=== PATIENT | male | born 1950 | race Caucasian/White ===

== ENCOUNTER → 2017-10-20 12:48 | Outpatient (CLI) | payer MEDICARE, MEDICAID, SELFPAY | PROVIDERS: Visit Provider Family Medicine | DX: D50.0 Iron deficiency anemia secondary to blood loss (chronic) (principal) ==

== ENCOUNTER 2018-01-05 13:49 | Inpatient (IN) ==
--- NOTE | 2018-01-05 15:15 | Emergency Department Note ---
ED Disposition Clinical Impression: Renal insufficiency Abscess of skin or subcutaneous tissue Qualifiers: Site of cutaneous abscess: extremity Site of cutaneous abscess of extremity: lower extremity Laterality: right Qualified Code(s): L02.415 - Cutaneous abscess of right lower limb Anemia Qualifiers: Anemia type: unspecified type Qualified Code(s): D64.9 - Anemia, unspecified Diabetes mellitus Qualifiers: Diabetes mellitus type: type 2 Diabetes mellitus half-way insulin use: with half-way use Diabetes mellitus complication detail: with chronic kidney disease Chronic kidney disease stage: unspecified stage Disposition: Admitted As Inpatient Condition on Discharge: Serious - Critical Care Critical Care Time: No Attestation: On 01/05/18, the high probability of a clinically significant, sudden or life threatening deterioration of the following system(s) required my full and direct attention, intervention and personal management. The time I documented below is in addition to time spent performing reported procedures but includes the following listed in this critical care notation. Medical Decision Making - Medical Records Medical records reviewed: Yes: I reviewed the patient's medical records. - Antonio Inquiry Pt receiving controlled substance: No Vital Signs: 01/05/18 14:19 01/05/18 14:37 01/05/18 15:25 Temperature 97.8 F Temperature Source Temporal Artery Scan Temporal Artery Scan Pulse Rate [Right Brachial] 70 74 78 Respiratory Rate 18 Blood Pressure [Right Arm] 122/47 119/38 120/44 Blood Pressure Mean [Right Arm] 72 65 69 Blood Pressure Source [Right Arm] Automatic Cuff Automatic Cuff Automatic Cuff Blood Pressure Position [Right Arm] Sitting Sitting Sitting 02 Sat by Pulse Oximetry 96 97 97 Oxygen Delivery Method Room Air Room Air 01/05/18 15:56 01/05/18 16:38 Temperature Temperature Source Temporal Artery Scan Pulse Rate [Right Brachial] 69 68 Respiratory Rate Blood Pressure [Right Arm] 121/60 119/68 Blood Pressure Mean [Right Arm] 80 85 Blood Pressure Source [Right Arm] Automatic Cuff Automatic Cuff Blood Pressure Position [Right Arm] Sitting Sitting 02 Sat by Pulse Oximetry 96 97 Oxygen Delivery Method Room Air Room Air - Lab Data Lab results reviewed: Yes: I reviewed the patient's lab results. Lab Results 01/05/18 14:49: WBC 6.3, RBC 2.92 L, Hgb 7.6 L*, Hct 26.4 L, MCV 90.4, MCH 26.1 L, MCHC 28.9 L, RDW 16.1, Plt Count 263, MPV 7.0 L, Neut % (Auto) 68.3, Lymph % (Auto) 11.9, [place] % (Auto) 4.9, Eos % (Auto) 14.6 H, Baso % (Auto) 0.4, Neut # (Auto) 4.3, Lymph # (Auto) 0.7, [place] # (Auto) 0.3, Eos # (Auto) 0.9 H, Baso # (Auto) 0.0, ESR 97 H 01/05/18 14:49: Sodium 140, Potassium 5.4 H, Chloride 104, Carbon Dioxide 26, Anion Gap 15.4 H, BUN 59 H, Creatinine 4.57 H, Estimated Creat Clear 26, Estimated GFR 13 L*, Est GFR ( Amer) 16 L*, Glucose 197 H, Calcium 7.6 L, Total Bilirubin 0.2, AST 17, ALT 15, Alkaline Phosphatase 47, Total Protein 6.8, Albumin 2.6 L, Globulin 4.2 H, Albumin/Globulin Ratio 0.6 L 01/05/18 14:49: Hemoglobin A1c 7.4 H 01/05/18 14:49: Lactate 1.8 Result diagrams: 01/05/18 14:49 01/05/18 14:49 Orders (Tests/Meds): ORDERS Category Date Time Status Fibula/tibia XR right 2 views [XR tibia fibula RT 2V] Exams 01/05/18 15:19 Taken Stat Foot XR left 2 views [XR foot LT 2V] Stat Exams 01/05/18 15:18 Taken Blood Culture Stat Micro 01/05/18 14:49 Received - Radiology Data #1 Image(s): Tib/Fib, Foot/Toes Image Reviewed: Yes I reviewed the patient's radiology image Preliminary Findings: Abnormal - Physician Consults Physician Consulted: sound Reason -: Admission Wound/Laceration HPI - General Chief Complaint: Skin/Abscess/Foreign Body Stated Complaint: Toes busting open Time Seen by Provider: 01/05/18 14:20 Mode of Arrival: Wheelchair Source of Information: Patient, Medical Record Limitations: No Limitations Description of Symptoms (Recalled from ER Triage Doc. by RN): BLE UNABOOTS PRESENT; PT STATES WAS PLACED ON AN ATB A WEEK AGO AND JUST FINISHED THEM FOR A BIG TOE INFECTION AND NOW HIS FEET ARE COMPLETELY RED AND SWOLLEN. STATES HE FEELS LIKE INFECTION HAS SPREAD. NOTE THAT HE SEEMS COMPLETELY OBLIVIOUS TO THE HUNDREDS OF MAGGOTS THAT ARE CRAWLING AROUND ON HIS RIGHT FOOT. - History of Present Illness HPI narrative: pt with swelling and reddness rt foot with hx of diabetes mellitus and has seen podiatry and wearing lower ext wraps - he reports this over the last few days Onset (ago): day(s) Extremity Location: Right: foot Place: home Associated symptoms: loss of feeling/numbness - Related Data Home Medications Medication Instructions Recorded Confirmed carvedilol 6.25 mg tablet 1 tab PO BID 90 Days #180 11/25/17 01/05/18 clopidogrel 75 mg tablet 1 tab PO DAILY 90 Days #90 11/25/17 01/05/18 fenofibrate nanocrystallized 145 1 tab PO DAILY 90 Days #90 11/25/17 01/05/18 mg tablet furosemide 80 mg tablet 1 tab PO DAILY 90 Days #90 11/25/17 01/05/18 glimepiride 4 mg tablet 1 tab PO DAILY 90 Days #90 11/25/17 01/05/18 hydralazine 10 mg tablet 1 % PO DAILY 90 Days #360 11/25/17 01/05/18 isosorbide mononitrate ER 30 mg 1 tab PO DAILY 90 Days #90 11/25/17 01/05/18 tablet,extended release 24 hr linagliptin 5 mg tablet 1 % PO DAILY 90 Days #90 11/25/17 01/05/18 lisinopril 10 mg tablet 1 tab PO DAILY 90 Days #180 11/25/17 01/05/18 metformin 1,000 mg tablet 1 tab PO BID 90 Days #90 11/25/17 01/05/18 mupirocin 2 % topical ointment 1 applicatio TOPICAL DAILY 15 Days 11/25/17 01/05/18 #66 omeprazole 20 mg capsule,delayed 1 tab PO DAILY 30 Days #60 11/25/17 01/05/18 release rosuvastatin 5 mg tablet 1 tab PO DAILY 90 Days #90 11/25/17 01/05/18 spironolactone 25 mg tablet 1 tab PO DAILY 87 Days #174 11/25/17 01/05/18 tramadol 50 mg tablet 1 tab PO DAILYP PRN 30 Days #30 11/25/17 01/05/18 Sulfamethoxazole/Trimethoprim 1 each PO BID 01/05/18 01/05/18 [Bactrim DS tablet] Allergies Allergy/AdvReac Type Severity Reaction Status Date / Time erythromycin base Allergy Intermediate Verified 01/05/18 15:59 [ERYTHROMYCIN BASE] Penicillins [PENICILLINS] Allergy Intermediate Verified 01/05/18 15:59 [facility] History I have reviewed the patient's past medical history: Yes Medical History: Reports:: Diabetes Mellitus Type 1, Hyperlipidemia, Hypertension Other Surgeries: Yes: Other Comment: oral surgery - Social History Smoking Status: Former smoker #Yrs smoked (if former smoker): 58 Alcohol Intake: never Alcohol Intake Frequency:: other - Psychiatric History Expresses thoughts of harming self/others: None Suicide Plan Description: No Plan ROS Obtained: Yes All systems reviewed & no additional complaints - Constitutional Constitutional: Denies fever(s) - Eyes Eyes: Denies change in vision - ENT Ears, Nose, Mouth, and Throat: Denies sore throat - Cardiovascular Cardiovascular: Denies chest pain - Respiratory Respiratory: No cough - Gastrointestinal Gastrointestingal: Denies: abdominal pain - Genitourinary Male Genitourinary: Denies hematuria - Musculoskeletal Musculoskeletal: Denies joint pain, Denies joint swelling - Integumentary/Breasts Skin/Breast: Reports as per HPI, Reports other (swollen legs with ulceration and maggots rt foot ) - Neurologic Neurologic: Denies seizure-like activity Physical Exam - General General appearance: alert - Head Head exam: normocephalic - Eye Eye exam: Present: PERRL, EOMI - ENT ENT exam: Present: mucous membranes dry - Neck Neck exam: Present: trachea midline - Respiratory Respiratory exam: Absent: respiratory distress - Cardiovascular Cardiovascular exam: Present: regular rate, systolic murmur - Abdominal Exam Abdominal exam: Present: soft - Extremities Exam Extremities exam: Present: other (reddness /tenderness rt lower ext with neuro dec and has tissue breakdown and maggots noted ) - Neurological Exam Neurological exam: Present: alert, oriented X3, other (dec sensation lower ext and has reddness and changes lt lower ext also ) - Psychiatric Psychiatric exam: Present: normal affect - Skin Skin exam: Present: other (cellulitis and changes lower ext )
[2018-01-05 15:25] LABS: Basophils % 0.4 % (0.1-2.0); Eosinophils # 0.9 K/mm3 (0.0-0.4); Eosinophils % 14.6 % (0.1-12.0); Hematocrit 26.4 % (42.0-52.0); Lymphocytes # 0.7 K/mm3 (0.7-4.5); Lymphocytes % 11.9 K/mm3 (10-50); Mean Corpuscular HGB Conc 28.9 g/dL (31.8-35.4); Mean Corpuscular Hemoglobin 26.1 pg (27.0-31.2); Mean Corpuscular Volume 90.4 fl (80-94); Monocytes # 0.3 K/mm3 (0.1-1.0); Monocytes % 4.9 % (1.7-9.3); Neutrophils # 4.3 K/mm3 (1.8-7.8); Neutrophils % 68.3 % (37.0-80.0); Platelet Count 263 K/mm3 (142-424); Red Blood Count 2.92 M/mm3 (4.60-6.20); Red Cell Distribution Width 16.1 % (11.5-17.5); White Blood Count 6.3 K/mm3 (4.8-10.8)
[2018-01-05 15:28] LABS: Albumin Level 2.6 gm/dL (3.4-5.0); Albumin/Globulin Ratio 0.6 (1.1-1.8); Anion Gap 15.4 mEq/L (5-15); Bilirubin,Total 0.2 mg/dL (0.2-1.0); Calcium 7.6 mg/dL (8.5-10.1); Globulin 4.2 gm/dl (1.3-3.2); Potassium 5.4 mmoL/L (3.5-5.1); Total Protein,Serum 6.8 gm/dL (6.4-8.2)
[2018-01-05 15:30] LABS: Hemoglobin 7.6 g/dL (14.1-18.0)
[2018-01-05 16:08] LABS: Erythrocyte Sedimentation Rate 97 mm/hr (0-20)
[2018-01-06 06:39] LABS: Basophils % 0.6 % (0.1-2.0); Eosinophils # 0.9 K/mm3 (0.0-0.4); Eosinophils % 15.4 % (0.1-12.0); Hematocrit 28.2 % (42.0-52.0); Lymphocytes # 0.9 K/mm3 (0.7-4.5); Lymphocytes % 15.4 K/mm3 (10-50); Mean Corpuscular HGB Conc 27.9 g/dL (31.8-35.4); Mean Corpuscular Hemoglobin 25.3 pg (27.0-31.2); Mean Corpuscular Volume 90.8 fl (80-94); Mean Platelet Volume 7.1 fl (7.4-10.4); Monocytes # 0.3 K/mm3 (0.1-1.0); Monocytes % 5.2 % (1.7-9.3); Neutrophils # 3.6 K/mm3 (1.8-7.8); Neutrophils % 63.5 % (37.0-80.0); Platelet Count 272 K/mm3 (142-424); Red Blood Count 3.11 M/mm3 (4.60-6.20); White Blood Count 5.6 K/mm3 (4.8-10.8)
[2018-01-06 06:47] LABS: Hemoglobin 7.9 g/dL (14.1-18.0)
[2018-01-06 06:52] LABS: Anion Gap 12.2 mEq/L (5-15); Calcium 7.7 mg/dL (8.5-10.1); Potassium 5.2 mmoL/L (3.5-5.1)
--- NOTE | 2018-01-06 07:27 | Pharmacy Consult Notes ---
[facility] Pharmacy VTE Monitoring - Patient Demographics Admission date: 01/05/18 Report Date: 01/06/18 Time: 07:27 Allergies/Adverse Reactions: Patient Allergies erythromycin base [ERYTHROMYCIN BASE] Allergy (Intermediate, Verified 01/05/18 15:59) Penicillins [PENICILLINS] Allergy (Intermediate, Verified 01/05/18 15:59) Height: 1.7 m Weight: 138.516 kg Patient Problems: Current Active Problems Abscess of skin or subcutaneous tissue (Acute) Renal insufficiency (Acute) Anemia (Acute) Diabetes mellitus (Acute) - VTE Risk Labs: VTE Related Lab Results Hgb 7.9 g/dL (14.1-18.0) L* 01/06/18 05:36 Hct 28.2 % (42.0-52.0) L 01/06/18 05:36 Plt Count 272 K/mm3 (142-424) 01/06/18 05:36 BUN 52 mg/dL (7-18) H 01/06/18 05:36 Creatinine 3.86 mg/dL (0.70-1.30) H 01/06/18 05:36 Estimated Creat Clear 17 mL/min (0-300) 01/06/18 05:36 Was VTE Risk Assessment Performed: Yes VTE Risk Level: Moderate Risk - Prophylaxis VTE Prophylaxis Ordered?: Yes Types of VTE Prophylaxis: TEDS Knee High Location of Applied Device: Bilateral Lower Extremeties - VTE Diagnosis Confirmed Treatment or plan recommended: Continue Current Treatment
--- NOTE | 2018-01-06 09:11 | Pharmacy Consult Notes ---
- Pharmacy Consult Date: 01/06/18 Time: 09:09 Referring provider: DR. DOZIER Reason for Consult:: VANCOMYCIN DOSING Allergies and ADEs:: Allergies Allergy/AdvReac Type Severity Reaction Status Date / Time erythromycin base Allergy Intermediate Verified 01/05/18 15:59 [ERYTHROMYCIN BASE] Penicillins [PENICILLINS] Allergy Intermediate Verified 01/05/18 15:59 Home Medications:: Home Medications Medication Instructions Recorded Confirmed Type carvedilol 6.25 mg tablet 6.25 mg PO BID 90 Days #180 11/25/17 01/06/18 History clopidogrel 75 mg tablet 75 mg PO DAILY 90 Days #90 11/25/17 01/06/18 History fenofibrate nanocrystallized 145 145 mg PO DAILY 90 Days #90 11/25/17 01/06/18 History mg tablet furosemide 80 mg tablet 80 mg PO DAILY 90 Days #90 11/25/17 01/06/18 History glimepiride 4 mg tablet 4 mg PO DAILY 90 Days #90 11/25/17 01/06/18 History hydralazine 10 mg tablet 20 mg PO BID 90 Days #360 11/25/17 01/06/18 History isosorbide mononitrate ER 30 mg 30 mg PO DAILY 90 Days #90 11/25/17 01/06/18 History tablet,extended release 24 hr linagliptin 5 mg tablet 5 mg PO DAILY 90 Days #90 11/25/17 01/06/18 History lisinopril 10 mg tablet 20 mg PO DAILY 90 Days #180 11/25/17 01/06/18 History metformin 1,000 mg tablet 1,000 mg PO DAILY 90 Days #90 11/25/17 01/06/18 History mupirocin 2 % topical ointment 1 applicatio TOPICAL DAILY 15 Days 11/25/17 01/05/18 History #66 omeprazole 20 mg capsule,delayed 20 mg PO DAILY 30 Days #60 11/25/17 01/06/18 History release rosuvastatin 5 mg tablet 5 mg PO DAILY 90 Days #90 11/25/17 01/06/18 History spironolactone 25 mg tablet 25 mg PO DAILY 87 Days #174 11/25/17 01/06/18 History tramadol 50 mg tablet 1 tab PO DAILY 30 Days #30 11/25/17 01/06/18 History Sulfamethoxazole/Trimethoprim 1 tab PO BID 01/05/18 01/06/18 History [Bactrim DS tablet] Ferrous Sulfate 325 mg PO DAILY 01/06/18 01/06/18 History Levocetirizine Dihydrochloride 5 mg PO HS 01/06/18 01/06/18 History [Xyzal] [place]-3 Acid Ethyl Esters [Lovaza] 1 gm PO QID 01/06/18 01/06/18 History Sucralfate [Carafate 1gm Tab] 1 gm PO ACHS 01/06/18 01/06/18 History Height: 1.7 m Weight: 138.516 kg Laboratory Results:: Laboratory Results - last 24 hr 01/05/18 14:49: WBC 6.3, RBC 2.92 L, Hgb 7.6 L*, Hct 26.4 L, MCV 90.4, MCH 26.1 L, MCHC 28.9 L, RDW 16.1, Plt Count 263, MPV 7.0 L, Neut % (Auto) 68.3, Lymph % (Auto) 11.9, [place] % (Auto) 4.9, Eos % (Auto) 14.6 H, Baso % (Auto) 0.4, Neut # (Auto) 4.3, Lymph # (Auto) 0.7, [place] # (Auto) 0.3, Eos # (Auto) 0.9 H, Baso # (Auto) 0.0, ESR 97 H 01/05/18 14:49: Sodium 140, Potassium 5.4 H, Chloride 104, Carbon Dioxide 26, Anion Gap 15.4 H, BUN 59 H, Creatinine 4.57 H, Estimated Creat Clear 26, Estimated GFR 13 L*, Est GFR ( Amer) 16 L*, Glucose 197 H, Calcium 7.6 L, Total Bilirubin 0.2, AST 17, ALT 15, Alkaline Phosphatase 47, Total Protein 6.8, Albumin 2.6 L, Globulin 4.2 H, Albumin/Globulin Ratio 0.6 L 01/05/18 14:49: Hemoglobin A1c 7.4 H 01/05/18 14:49: Lactate 1.8 01/05/18 17:10: Blood Type O Positive, Antibody Screen Negative, Crossmatch (AHG) See Detail 01/05/18 20:21: POC Glucose 283 H 01/06/18 05:36: WBC 5.6, RBC 3.11 L, Hgb 7.9 L*, Hct 28.2 L, MCV 90.8, MCH 25.3 L, MCHC 27.9 L, RDW 16.0, Plt Count 272, MPV 7.1 L, Neut % (Auto) 63.5, Lymph % (Auto) 15.4, [place] % (Auto) 5.2, Eos % (Auto) 15.4 H, Baso % (Auto) 0.6, Neut # (Auto) 3.6, Lymph # (Auto) 0.9, [place] # (Auto) 0.3, Eos # (Auto) 0.9 H, Baso # (Auto) 0.0 01/06/18 05:36: Sodium 143, Potassium 5.2 H, Chloride 105, Carbon Dioxide 31, Anion Gap 12.2, BUN 52 H, Creatinine 3.86 H, Estimated Creat Clear 17, Estimated GFR 16 L*, Est GFR ( Amer) 19 L*, Glucose 75 D, Calcium 7.7 L, Magnesium 2.3 H 01/06/18 06:27: POC Glucose 75 Medical History: Reports:: Diabetes Mellitus Type 1, Hyperlipidemia, Hypertension Assessment and Plan - Assessment and plan all Dx Assessment and Plan for all problems:: BASED ON PATIENT'S FACTORS, RECOMMENDED CONTINUING WITH VANCOMYCIN 2000 MG Q48H AT THIS TIME TIME. PATIENT RECEIVED VANCOMYCIN 2000 MG OVERNIGHT IN ER. WILL SCHEDULE THE NEXT DOSE FOR 01/07/18 AT 1300. PHARMACY WILL FOLLOW DAILY AND ADJUST APPROPRIATE. IVAN CAR, REMBERTOD
--- NOTE | 2018-01-06 09:14 | Consult Report ---
*Admission Date: 01/05/18 *Chief complaint: B/L LE Cellulitis *History of present illness: Mr. Denson is a 67-year-old male with a history of type 2 diabetes mellitus, hypertension, sleep apnea, and chronic leg cellulitis and PVD. He states that he has been on antibiotics about the last 3-4 weeks and his cellulitis seemed to be worsening. He looked down at his feet and they were bleeding. He then had his son bring him to the emergency room. He was seen in the office of [facility] 12/24/2017 with pressure injury of sacral region, peripheral vascular disease, acute stasis dermatitis, iron deficiency anemia, and acquired hydrocele. He was scheduled for an ultrasound and CT of the abdomen and pelvis as an outpatient today. Dr. Guevara has repeatedly tried to convince the patient to be admitted for treatment of his cellulitis and his anemia. This a.m. patient seems comfortable. He states that he did sleep some last night. He denies chest pain and shortness of breath. Patient has been having Unna boots applied by his son to both legs. He states that he keeps the boots on for 2 weeks at a time due to the limited number of supplies he has. States sometimes when the boots come off his legs are very wet. Review of Systems - Review of Systems Review of systems:: pertinent systems reviewed and negative unless documented below - Constitutional Denies fever(s), Denies lack of energy - Eyes Denies blind spots - ENT Denies abnormal hearing - *Cardiovascular Denies chest pain, Denies shortness of breath - *Respiratory Denies chest congestion, Denies shortness of breath - *Gastrointestinal Reports abdominal pain, Denies nausea - *Genitourinary Reports genital pain - *Musculoskeletal Reports muscle weakness, Reports numbness, Reports tingling - *Neurologic Reports burning sensations, Reports tingling/numbness/burning sensations, Denies seizure-like activity - Psychiatric Denies behavioral changes [facility] History Medical History: Reports:: Diabetes Mellitus Type 1, Hyperlipidemia, Hypertension Other Medical History: Reports: Arthritis Other Surgeries: Yes: Other - *Social History Smoking Status: Former smoker #Yrs smoked (if former smoker): 58 Alcohol Intake: never Alcohol Intake Frequency:: other Occupational Status: disabled - Psychiatric History Expresses thoughts of harming self/others: None Suicide Plan Description: No Plan Meds Home Medications Medication Instructions Recorded Confirmed Type carvedilol 6.25 mg tablet 6.25 mg PO BID 90 Days #180 11/25/17 01/06/18 History clopidogrel 75 mg tablet 75 mg PO DAILY 90 Days #90 11/25/17 01/06/18 History fenofibrate nanocrystallized 145 145 mg PO DAILY 90 Days #90 11/25/17 01/06/18 History mg tablet furosemide 80 mg tablet 80 mg PO DAILY 90 Days #90 11/25/17 01/06/18 History glimepiride 4 mg tablet 4 mg PO DAILY 90 Days #90 11/25/17 01/06/18 History hydralazine 10 mg tablet 20 mg PO BID 90 Days #360 11/25/17 01/06/18 History isosorbide mononitrate ER 30 mg 30 mg PO DAILY 90 Days #90 11/25/17 01/06/18 History tablet,extended release 24 hr linagliptin 5 mg tablet 5 mg PO DAILY 90 Days #90 11/25/17 01/06/18 History lisinopril 10 mg tablet 20 mg PO DAILY 90 Days #180 11/25/17 01/06/18 History metformin 1,000 mg tablet 1,000 mg PO DAILY 90 Days #90 11/25/17 01/06/18 History mupirocin 2 % topical ointment 1 applicatio TOPICAL DAILY 15 Days 11/25/17 01/05/18 History #66 omeprazole 20 mg capsule,delayed 20 mg PO DAILY 30 Days #60 11/25/17 01/06/18 History release rosuvastatin 5 mg tablet 5 mg PO DAILY 90 Days #90 11/25/17 01/06/18 History spironolactone 25 mg tablet 25 mg PO DAILY 87 Days #174 11/25/17 01/06/18 History tramadol 50 mg tablet 1 tab PO DAILY 30 Days #30 11/25/17 01/06/18 History Sulfamethoxazole/Trimethoprim 1 tab PO BID 01/05/18 01/06/18 History [Bactrim DS tablet] Ferrous Sulfate 325 mg PO DAILY 01/06/18 01/06/18 History Levocetirizine Dihydrochloride 5 mg PO HS 01/06/18 01/06/18 History [Xyzal] [place]-3 Acid Ethyl Esters [Lovaza] 1 gm PO QID 01/06/18 01/06/18 History Sucralfate [Carafate 1gm Tab] 1 gm PO ACHS 01/06/18 01/06/18 History Allergies Allergy/AdvReac Type Severity Reaction Status Date / Time erythromycin base Allergy Intermediate Verified 01/05/18 15:59 [ERYTHROMYCIN BASE] Penicillins [PENICILLINS] Allergy Intermediate Verified 01/05/18 15:59 Exam Vital signs and Labs for Last 24 Hours: Temp Pulse Resp BP Pulse Ox 98.8 F 80 20 142/60 97 01/06/18 07:49 01/06/18 07:49 01/06/18 07:49 01/06/18 07:49 01/06/18 07:49 Laboratory Results - last 24 hr 01/05/18 14:49: WBC 6.3, RBC 2.92 L, Hgb 7.6 L*, Hct 26.4 L, MCV 90.4, MCH 26.1 L, MCHC 28.9 L, RDW 16.1, Plt Count 263, MPV 7.0 L, Neut % (Auto) 68.3, Lymph % (Auto) 11.9, [place] % (Auto) 4.9, Eos % (Auto) 14.6 H, Baso % (Auto) 0.4, Neut # (Auto) 4.3, Lymph # (Auto) 0.7, [place] # (Auto) 0.3, Eos # (Auto) 0.9 H, Baso # (Auto) 0.0, ESR 97 H 01/05/18 14:49: Sodium 140, Potassium 5.4 H, Chloride 104, Carbon Dioxide 26, Anion Gap 15.4 H, BUN 59 H, Creatinine 4.57 H, Estimated Creat Clear 26, Estimated GFR 13 L*, Est GFR ( Amer) 16 L*, Glucose 197 H, Calcium 7.6 L, Total Bilirubin 0.2, AST 17, ALT 15, Alkaline Phosphatase 47, Total Protein 6.8, Albumin 2.6 L, Globulin 4.2 H, Albumin/Globulin Ratio 0.6 L 01/05/18 14:49: Hemoglobin A1c 7.4 H 01/05/18 14:49: Lactate 1.8 01/05/18 17:10: Blood Type O Positive, Antibody Screen Negative, Crossmatch ([facility]) See Detail 01/05/18 20:21: POC Glucose 283 H 01/06/18 05:36: WBC 5.6, RBC 3.11 L, Hgb 7.9 L*, Hct 28.2 L, MCV 90.8, MCH 25.3 L, MCHC 27.9 L, RDW 16.0, Plt Count 272, MPV 7.1 L, Neut % (Auto) 63.5, Lymph % (Auto) 15.4, [place] % (Auto) 5.2, Eos % (Auto) 15.4 H, Baso % (Auto) 0.6, Neut # (Auto) 3.6, Lymph # (Auto) 0.9, [place] # (Auto) 0.3, Eos # (Auto) 0.9 H, Baso # (Auto) 0.0 01/06/18 05:36: Sodium 143, Potassium 5.2 H, Chloride 105, Carbon Dioxide 31, Anion Gap 12.2, BUN 52 H, Creatinine 3.86 H, Estimated Creat Clear 17, Estimated GFR 16 L*, Est GFR ( Amer) 19 L*, Glucose 75 D, Calcium 7.7 L, Magnesium 2.3 H 01/06/18 06:27: POC Glucose 75 I & O for Last 24 hours: Intake & Output 01/03/18 01/04/18 01/05/18 01/06/18 11:59 11:59 11:59 11:59 Intake Total 1099 / 1099 Balance 1099 / 1099 Weight 305 lb 6 oz - *Routine HEENT Exam Head: Present: normocephalic Eye: Present: EOMI ENT: Present: mucous membranes moist - *Routine Neck Exam Present: supple - *Routine Respiratory Exam Present: CTA bilaterally - *Routine Cardiovascular Exam Present: RRR - *Routine Abdominal Exam Present: soft. Absent: tenderness - *Routine Rectal Exam Patient deferred: visual exam - *Routine Exam Penile: Present: swelling - *Routine Extremities Exam Present: edema. Absent: tenderness, amputation - *Routine Skin Exam Present: erythema (B/L LE), wounds - *Routine Neurological Exam Present: alert - Detailed Lower Extremity Exam Lower leg: Bilateral erythema Foot/Toes: Bilateral swelling, Bilateral wound (multiple blisters) Comments: Weakly palpable pedal pulses, secondary to b/l LE swelling. 3+ pitting edema with lymphatic drainage. Multiple areas of blistering noted on the anterior and posterior aspects of both legs. Edema and erythema noted to both legs. There are no deep lesions or sinus tract cavity is noted. On the dorsal aspect of the left second toe there is a small wound with a granular wound bed measuring 0.90.60.1 cm. On the right foot there is a small wound limited to skin breakdown on the distal second toe measuring 0.30.30.0 cm. Wound base granular with no signs of infection. There is another small wound on the right third dorsal toe, wound base granular, limited to breakdown of subcutaneous tissue measuring 0.40.50.1 cm. None of the wounds have active purulence or drainage. No pain to palpation. Minimal interdigital maceration noted. No evidence of fissuring or cracking between the toes. No evidence of new bugs or maggots. Results - Labs Result Diagrams: 01/06/18 05:36 01/06/18 05:36 Labs: Abnormal lab results 01/05/18 01/05/18 01/05/18 Range/Units 14:49 14:49 14:49 RBC 2.92 L (4.60-6.20) M/mm3 Hgb 7.6 L* (14.1-18.0) g/dL Hct 26.4 L (42.0-52.0) % MCH 26.1 L (27.0-31.2) pg MCHC 28.9 L (31.8-35.4) g/dL MPV 7.0 L (7.4-10.4) fl Eos % (Auto) 14.6 H (0.1-12.0) % Eos # (Auto) 0.9 H (0.0-0.4) K/mm3 ESR 97 H (0-20) mm/hr Potassium 5.4 H (3.5-5.1) mmoL/L Anion Gap 15.4 H (5-15) mEq/L BUN 59 H (7-18) mg/dL Creatinine 4.57 H (0.70-1.30) mg/dL Estimated GFR 13 L* (>60) ml/min Est GFR ( Amer) 16 L* (>60) ML/MIN Glucose 197 H (74-106) mg/dL POC Glucose (70-110) Hemoglobin A1c 7.4 H (0.0-7.0) % Calcium 7.6 L (8.5-10.1) mg/dL Magnesium (1.4-2.2) mg/dL Albumin 2.6 L (3.4-5.0) gm/dL Globulin 4.2 H (1.3-3.2) gm/dl Albumin/Globulin Ratio 0.6 L (1.1-1.8) Crossmatch ([facility]) 01/05/18 01/05/18 01/06/18 Range/Units 17:10 20:21 05:36 RBC 3.11 L (4.60-6.20) M/mm3 Hgb 7.9 L* (14.1-18.0) g/dL Hct 28.2 L (42.0-52.0) % MCH 25.3 L (27.0-31.2) pg MCHC 27.9 L (31.8-35.4) g/dL MPV 7.1 L (7.4-10.4) fl Eos % (Auto) 15.4 H (0.1-12.0) % Eos # (Auto) 0.9 H (0.0-0.4) K/mm3 ESR (0-20) mm/hr Potassium (3.5-5.1) mmoL/L Anion Gap (5-15) mEq/L BUN (7-18) mg/dL Creatinine (0.70-1.30) mg/dL Estimated GFR (>60) ml/min Est GFR ( Amer) (>60) ML/MIN Glucose (74-106) mg/dL POC Glucose 283 H (70-110) Hemoglobin A1c (0.0-7.0) % Calcium (8.5-10.1) mg/dL Magnesium (1.4-2.2) mg/dL Albumin (3.4-5.0) gm/dL Globulin (1.3-3.2) gm/dl Albumin/Globulin Ratio (1.1-1.8) Crossmatch ([facility]) See Detail 01/06/18 Range/Units 05:36 RBC (4.60-6.20) M/mm3 Hgb (14.1-18.0) g/dL Hct (42.0-52.0) % MCH (27.0-31.2) pg MCHC (31.8-35.4) g/dL MPV (7.4-10.4) fl Eos % (Auto) (0.1-12.0) % Eos # (Auto) (0.0-0.4) K/mm3 ESR (0-20) mm/hr Potassium 5.2 H (3.5-5.1) mmoL/L Anion Gap (5-15) mEq/L BUN 52 H (7-18) mg/dL Creatinine 3.86 H (0.70-1.30) mg/dL Estimated GFR 16 L* (>60) ml/min Est GFR ( Amer) 19 L* (>60) ML/MIN Glucose (74-106) mg/dL POC Glucose (70-110) Hemoglobin A1c (0.0-7.0) % Calcium 7.7 L (8.5-10.1) mg/dL Magnesium 2.3 H (1.4-2.2) mg/dL Albumin (3.4-5.0) gm/dL Globulin (1.3-3.2) gm/dl Albumin/Globulin Ratio (1.1-1.8) Crossmatch ([facility]) H & H 01/05/18 01/06/18 Range/Units 14:49 05:36 Hgb 7.6 L* 7.9 L* (14.1-18.0) g/dL Hct 26.4 L 28.2 L (42.0-52.0) % All other labs normal. - Diagnostic results Ankle/Foot x-ray: report reviewed ((-) OM, fracture), image reviewed Assessment and Plan (1) Lymphedema of both lower extremities Current visit: Yes Status: Acute Category: Medical Code(s): I89.0 - Lymphedema, not elsewhere classified (2) Bilateral cellulitis of lower leg Current visit: Yes Status: Acute Category: Medical Code(s): L03.116 - Cellulitis of left lower limb; L03.115 - Cellulitis of right lower limb (3) Renal insufficiency Current visit: Yes Status: Acute Category: Medical Code(s): N28.9 - Disorder of kidney and ureter, unspecified (4) Obesity, Class III, BMI 40-49.9 (morbid obesity) Current visit: Yes Status: Acute Category: Medical Code(s): E66.01 - Morbid (severe) obesity due to excess calories (5) Diabetes mellitus Current visit: Yes Status: Acute Qualifiers: Diabetes mellitus type: type 2 Diabetes mellitus terminal operations manager insulin use: with terminal operations manager use Diabetes mellitus complication detail: with chronic kidney disease Chronic kidney disease stage: unspecified stage Category: Medical Code(s): E11.9 - Type 2 diabetes mellitus without complications - Assessment and plan all Dx Assessment and Plan for all problems:: B/L LE LYMPHEDEMA, CELLULITIS: Last DFC:11/25/17 Lower extremities were cleansed with Hibiclens. I explained to the patient the importance of keeping the legs clean and dry. Unna boots are good for compression however he cannot leave the boot on for 2 weeks. Explained about the importance of keeping the legs and in between the toes try to avoid bug/Maggot formation. Patient verbalized understanding. 1. Daily hibiclens to b/l LE 2. Application of unna boots today 3. Wound culture taken, right posterior leg (blister fluid) 4. Continue IV abx for cellulitis 5. Wound care consult for application of unna boots b/l 6. Will need continued compression therapy upon discharge (wound care, l ymphedema clinic versus [facility]) 7. Patient needs to follow up out patient for DFC and for DM shoe fitting ([facility]) 8. No plans for surgical intervention, cancel NPO 9. Dr. Olmos will re-evaluate b/l LE 01/08/18
--- NOTE | 2018-01-06 09:15 | History & Physical Report ---
*Admission Date: 01/05/18 *Chief complaint: Bilateral leg cellulitis *History of present illness: Mr. Denson is a 67-year-old male with a history of type 2 diabetes mellitus, hypertension, sleep apnea, and chronic leg cellulitis and PVD. He states that he has been on antibiotics about the last 3-4 weeks and his cellulitis seemed to be worsening.He looked down at his feet and they were bleeding. He then had his son bring him to the emergency room. He was seen in the office of [facility] 12/24/2017 with pressure injury of sacral region, peripheral vascular disease, acute stasis dermatitis, iron deficiency anemia, and acquired hydrocele. He was scheduled for an ultrasound and CT of the abdomen and pelvis as an outpatient today. Dr. Guevara has repeatedly tried to convince the patient to be admitted for treatment of his cellulitis and his anemia. This a.m. patient seems comfortable. He states that he did sleep some last night. He is awaiting Dr. rudolph. He denies chest pain and shortness of breath. [facility] History Medical History: Reports:: Diabetes Mellitus Type 2, Hyperlipidemia, Hypertension Denies:: Atherosclerotic Heart Disease Other Medical History: Reports: Anemia, Arthritis Comment: Sleep apnea Other Surgeries: Yes: Other - *Social History Smoking Status: Former smoker #Yrs smoked (if former smoker): 58 Alcohol Intake: never Alcohol Intake Frequency:: other Occupational Status: disabled - Psychiatric History Expresses thoughts of harming self/others: None Suicide Plan Description: No Plan *Family Hx:: Kidney Disease Review of Systems - Constitutional Denies body ache(s), Denies fever(s) - ENT Denies dizziness, Denies ear pain, Denies mouth pain - *Cardiovascular Reports leg swelling, Denies chest pain, Denies shortness of breath - *Respiratory Denies chest congestion, Denies cough, Denies shortness of breath - *Gastrointestinal Denies abdominal pain, Denies change in bowel habits, Denies constipation, Denies heartburn, Denies vomiting blood, Denies bright, red blood in stools, Denies black, tarry stools - *Musculoskeletal Reports abnormal walking Comments: He uses a motor eyes wheelchair. He can walk - *Neurologic Reports abnormal walking, Denies abnormal speech, Denies seizure-like activity Meds Home Medications Medication Instructions Recorded Confirmed Type carvedilol 6.25 mg tablet 6.25 mg PO BID 90 Days #180 07/24/18 09/04/18 History clopidogrel 75 mg tablet 75 mg PO DAILY 90 Days #90 11/25/17 01/06/18 History fenofibrate nanocrystallized 145 145 mg PO DAILY 90 Days #90 11/25/17 01/06/18 History mg tablet furosemide 80 mg tablet 80 mg PO DAILY 90 Days #90 11/25/17 01/06/18 History glimepiride 4 mg tablet 4 mg PO DAILY 90 Days #90 11/25/17 01/06/18 History hydralazine 10 mg tablet 20 mg PO BID 90 Days #360 11/25/17 01/06/18 History isosorbide mononitrate ER 30 mg 30 mg PO DAILY 90 Days #90 11/25/17 01/06/18 History tablet,extended release 24 hr linagliptin 5 mg tablet 5 mg PO DAILY 90 Days #90 11/25/17 01/06/18 History lisinopril 10 mg tablet 20 mg PO DAILY 90 Days #180 11/25/17 01/06/18 History metformin 1,000 mg tablet 1,000 mg PO DAILY 90 Days #90 11/25/17 01/06/18 History mupirocin 2 % topical ointment 1 applicatio TOPICAL DAILY 15 Days 11/25/17 01/05/18 History #66 omeprazole 20 mg capsule,delayed 20 mg PO DAILY 30 Days #60 11/25/17 01/06/18 History release rosuvastatin 5 mg tablet 5 mg PO DAILY 90 Days #90 11/25/17 01/06/18 History spironolactone 25 mg tablet 25 mg PO DAILY 87 Days #174 11/25/17 01/06/18 History tramadol 50 mg tablet 1 tab PO DAILY 30 Days #30 11/25/17 01/06/18 History Sulfamethoxazole/Trimethoprim 1 tab PO BID 01/05/18 01/06/18 History [Bactrim DS tablet] Ferrous Sulfate 325 mg PO DAILY 01/06/18 01/06/18 History Levocetirizine Dihydrochloride 5 mg PO HS 01/06/18 01/06/18 History [Xyzal] [place]-3 Acid Ethyl Esters [Lovaza] 1 gm PO QID 01/06/18 01/06/18 History Sucralfate [Carafate 1gm Tab] 1 gm PO ACHS 01/06/18 01/06/18 History Allergies Allergy/AdvReac Type Severity Reaction Status Date / Time erythromycin base Allergy Intermediate Verified 01/05/18 15:59 [ERYTHROMYCIN BASE] Penicillins [PENICILLINS] Allergy Intermediate Verified 01/05/18 15:59 Exam Vital signs and Labs for Last 24 Hours: Temp Pulse Resp BP Pulse Ox 98.8 F 80 20 142/60 97 01/06/18 07:49 01/06/18 07:49 01/06/18 07:49 01/06/18 07:49 01/06/18 07:49 Laboratory Results - last 24 hr 01/05/18 14:49: WBC 6.3, RBC 2.92 L, Hgb 7.6 L*, Hct 26.4 L, MCV 90.4, MCH 26.1 L, MCHC 28.9 L, RDW 16.1, Plt Count 263, MPV 7.0 L, Neut % (Auto) 68.3, Lymph % (Auto) 11.9, [place] % (Auto) 4.9, Eos % (Auto) 14.6 H, Baso % (Auto) 0.4, Neut # (Auto) 4.3, Lymph # (Auto) 0.7, [place] # (Auto) 0.3, Eos # (Auto) 0.9 H, Baso # (Auto) 0.0, ESR 97 H 01/05/18 14:49: Sodium 140, Potassium 5.4 H, Chloride 104, Carbon Dioxide 26, Anion Gap 15.4 H, BUN 59 H, Creatinine 4.57 H, Estimated Creat Clear 26, Estimated GFR 13 L*, Est GFR ( Amer) 16 L*, Glucose 197 H, Calcium 7.6 L, Total Bilirubin 0.2, AST 17, ALT 15, Alkaline Phosphatase 47, Total Protein 6.8, Albumin 2.6 L, Globulin 4.2 H, Albumin/Globulin Ratio 0.6 L 01/05/18 14:49: Hemoglobin A1c 7.4 H 01/05/18 14:49: Lactate 1.8 01/05/18 17:10: Blood Type O Positive, Antibody Screen Negative, Crossmatch ([facility]) See Detail 01/05/18 20:21: POC Glucose 283 H 01/06/18 05:36: WBC 5.6, RBC 3.11 L, Hgb 7.9 L*, Hct 28.2 L, MCV 90.8, MCH 25.3 L, MCHC 27.9 L, RDW 16.0, Plt Count 272, MPV 7.1 L, Neut % (Auto) 63.5, Lymph % (Auto) 15.4, [place] % (Auto) 5.2, Eos % (Auto) 15.4 H, Baso % (Auto) 0.6, Neut # (Auto) 3.6, Lymph # (Auto) 0.9, [place] # (Auto) 0.3, Eos # (Auto) 0.9 H, Baso # (Auto) 0.0 01/06/18 05:36: Sodium 143, Potassium 5.2 H, Chloride 105, Carbon Dioxide 31, Anion Gap 12.2, BUN 52 H, Creatinine 3.86 H, Estimated Creat Clear 17, Estimated GFR 16 L*, Est GFR ( Amer) 19 L*, Glucose 75 D, Calcium 7.7 L, Magnesium 2.3 H 01/06/18 06:27: POC Glucose 75 I & O for Last 24 hours: Intake & Output 01/03/18 01/04/18 01/05/18 01/06/18 11:59 11:59 11:59 11:59 Intake Total 1099 / 1099 Balance 1099 / 1099 Weight 305 lb 6 oz Radiology Reports for the Last 24 Hours: 01/05/2018 x-ray of left foot IMPRESSION: No fracture or acute findings at the left foot. 01/05/2018 x-ray of right tibia-fibula IMPRESSION: Tibia and fibula intact no fracture Suggestion of subtle edema throughout soft tissues lower leg. leg. - Constitutional no acute distress Comments: Sitting in his motorized wheelchair in his room. Appears comfortable. - *Routine HEENT Exam Head: Present: normocephalic, atraumatic Eye: Present: PERRL ENT: Present: mucous membranes moist - *Routine Neck Exam Present: supple. Absent: carotid bruit, lymphadenopathy, thyromegaly - *Routine Respiratory Exam Present: CTA bilaterally (Anteriorly and posteriorly) - *Routine Cardiovascular Exam Present: RRR - *Routine Abdominal Exam Present: soft, normoactive bowel sounds. Absent: tenderness, distended - *Routine Extremities Exam Present: edema Comments: Bilateral feet and legs to the knees with pink excoriation. Bugs again noted. Dr. Olmos present and cleaning and dressing legs. - *Routine Neurological Exam Present: alert, oriented X3 Assessment and Plan - Assessment and plan all Dx Assessment and Plan for all problems:: Dr. Olmos is seen patient. We will continue with IV antibiotics. He will have an ultrasound of his testicle.
[2018-01-07 08:13] LABS: Basophils % 0.8 % (0.1-2.0); Eosinophils # 0.8 K/mm3 (0.0-0.4); Eosinophils % 14.5 % (0.1-12.0); Hematocrit 28.8 % (42.0-52.0); Hemoglobin 8.4 g/dL (14.1-18.0); Lymphocytes # 0.9 K/mm3 (0.7-4.5); Mean Corpuscular Hemoglobin 26.4 pg (27.0-31.2); Mean Corpuscular Volume 91.1 fl (80-94); Mean Platelet Volume 7.9 fl (7.4-10.4); Monocytes # 0.3 K/mm3 (0.1-1.0); Monocytes % 4.5 % (1.7-9.3); Neutrophils # 3.5 K/mm3 (1.8-7.8); Neutrophils % 64.3 % (37.0-80.0); Platelet Count 256 K/mm3 (142-424); Red Blood Count 3.16 M/mm3 (4.60-6.20); White Blood Count 5.5 K/mm3 (4.8-10.8)
--- NOTE | 2018-01-07 08:29 | Progress Note ---
Internal Medicine - PN: Subj *Date: 01/07/18 *Time: 08:27 Interval history: Patient states he is feeling well this morning. He had a good night sleep and ate most of his breakfast. He denies any pain. Exam Vital signs and Labs for Last 24 Hours: Temp Pulse Resp BP Pulse Ox 98.4 F 79 18 171/88 94 L 01/07/18 07:20 01/07/18 07:20 01/07/18 07:20 01/07/18 07:20 01/07/18 07:20 Laboratory Results - last 24 hr 01/06/18 11:49: POC Glucose 101 01/06/18 16:25: POC Glucose 129 H 01/07/18 07:07: POC Glucose 83 01/07/18 07:58: WBC 5.5, RBC 3.16 L, Hgb 8.4 L, Hct 28.8 L, MCV 91.1, MCH 26.4 L , MCHC 29.0 L, RDW 16.0, Plt Count 256, MPV 7.9, Neut % (Auto) 64.3, Lymph % (Auto) 16.0, [place] % (Auto) 4.5, Eos % (Auto) 14.5 H, Baso % (Auto) 0.8, Neut # (Auto) 3.5, Lymph # (Auto) 0.9, [place] # (Auto) 0.3, Eos # (Auto) 0.8 H, Baso # (Auto) 0.0 I & O for Last 24 hours: Intake & Output 01/04/18 01/05/18 01/06/18 01/07/18 11:59 11:59 11:59 11:59 Intake Total 1099 / 1099 1870 / 1870 Output Total 360 / 360 Balance 1099 / 1099 1510 / 1510 Weight 305 lb 6 oz 300 lb Microbiology Reports for the Last 24 Hours: Microbiology 01/06/18 08:30 Leg,Right - Wound Gram Stain - Final - Constitutional no acute distress - *Routine Respiratory Exam Present: CTA bilaterally - *Routine Cardiovascular Exam Present: RRR - *Routine Abdominal Exam Present: soft, normoactive bowel sounds. Absent: tenderness - *Routine Extremities Exam Present: edema (bilateral lower extremities, mary boots in place) Assessment and Plan (1) Lymphedema of both lower extremities Current visit: Yes Status: Acute Category: Medical Code(s): I89.0 - Lymphedema, not elsewhere classified (2) Bilateral cellulitis of lower leg Current visit: Yes Status: Acute Category: Medical Code(s): L03.116 - Cellulitis of left lower limb; L03.115 - Cellulitis of right lower limb (3) Renal insufficiency Current visit: Yes Status: Acute Category: Medical Code(s): N28.9 - Disorder of kidney and ureter, unspecified (4) Obesity, Class III, BMI 40-49.9 (morbid obesity) Current visit: Yes Status: Acute Category: Medical Code(s): E66.01 - Morbid (severe) obesity due to excess calories (5) Diabetes mellitus Current visit: Yes Status: Acute Qualifiers: Diabetes mellitus type: type 2 Diabetes mellitus intermediate project manager insulin use: with intermediate project manager use Diabetes mellitus complication detail: with chronic kidney disease Chronic kidney disease stage: unspecified stage Category: Medical Code(s): E11.9 - Type 2 diabetes mellitus without complications - Assessment and plan all Dx Assessment and Plan for all problems:: Dr. Arriaga's note reviewed and appreciated. Will continue IV antibiotics. Will discuss further care with Dr. beltran.
--- NOTE | 2018-01-07 08:44 | Progress Note ---
Internal Medicine - PN: Subj *Date: 01/07/18 *Time: 08:41 Interval history: This patient has chronic blood loss anemia. We have tried multiple times to get him admitted so he can have colonoscopy done. He needs to have this done inpatient because he is no ability to care for himself at home and he has no one to assist him if he were to return home. The need to have a scope done inpatient. This is an opportune time. He still has evidence of GI bleeding with admission of his significant anemia and now transfusion. Etiology of the chronic GI blood loss needs to be determined. Dr. Forte is familiar with this patient's case and has had colonoscopy planned in the past but this is not been accomplished due to the patient's reticence. Exam Vital signs and Labs for Last 24 Hours: Temp Pulse Resp BP Pulse Ox 98.4 F 79 18 171/88 94 L 01/07/18 07:20 01/07/18 07:20 01/07/18 07:20 01/07/18 07:20 01/07/18 07:20 Laboratory Results - last 24 hr 01/06/18 11:49: POC Glucose 101 01/06/18 16:25: POC Glucose 129 H 01/07/18 07:07: POC Glucose 83 01/07/18 07:58: WBC 5.5, RBC 3.16 L, Hgb 8.4 L, Hct 28.8 L, MCV 91.1, MCH 26.4 L , MCHC 29.0 L, RDW 16.0, Plt Count 256, MPV 7.9, Neut % (Auto) 64.3, Lymph % (Auto) 16.0, [place] % (Auto) 4.5, Eos % (Auto) 14.5 H, Baso % (Auto) 0.8, Neut # (Auto) 3.5, Lymph # (Auto) 0.9, [place] # (Auto) 0.3, Eos # (Auto) 0.8 H, Baso # (Auto) 0.0 Laboratory Tests 01/05/18 01/06/18 01/07/18 14:49 05:36 07:58 Hgb 7.6 L* 7.9 L* 8.4 L I & O for Last 24 hours: Intake & Output 01/04/18 01/05/18 01/06/18 01/07/18 11:59 11:59 11:59 11:59 Intake Total 1099 / 1099 1870 / 1870 Output Total 360 / 360 Balance 1099 / 1099 1510 / 1510 Weight 305 lb 6 oz 300 lb Microbiology Reports for the Last 24 Hours: Microbiology 01/06/18 08:30 Leg,Right - Wound Gram Stain - Final Assessment and Plan (1) Lymphedema of both lower extremities Current visit: Yes Status: Acute Category: Medical Code(s): I89.0 - Lymphedema, not elsewhere classified (2) Bilateral cellulitis of lower leg Current visit: Yes Status: Acute Category: Medical Code(s): L03.116 - Cellulitis of left lower limb; L03.115 - Cellulitis of right lower limb (3) Renal insufficiency Current visit: Yes Status: Acute Category: Medical Code(s): N28.9 - Disorder of kidney and ureter, unspecified (4) Obesity, Class III, BMI 40-49.9 (morbid obesity) Current visit: Yes Status: Acute Category: Medical Code(s): E66.01 - Morbid (severe) obesity due to excess calories (5) Diabetes mellitus Current visit: Yes Status: Acute Qualifiers: Diabetes mellitus type: type 2 Diabetes mellitus long term care pharmacist insulin use: with long term care pharmacist use Diabetes mellitus complication detail: with chronic kidney disease Chronic kidney disease stage: unspecified stage Category: Medical Code(s): E11.9 - Type 2 diabetes mellitus without complications - Assessment and plan all Dx Assessment and Plan for all problems:: Consult Dr. Forte. Would be excellent if we can get a colonoscopy performed on this gentleman as an inpatient. This would avoid recurrent anemia issues without identified etiology.
--- NOTE | 2018-01-07 12:41 | Consult Report ---
*Admission Date: 01/05/18 *Chief complaint: Anemia *History of present illness: This is a 67-year-old gentleman seen in consultation from Dr. Guevara for possible colonoscopy. The patient has multiple comorbid medical conditions and has had long-standing anemia. Multiple efforts have been made historically to try to get the patient to agree to colonoscopy and he has refused. Please see the below HPI from his admission H&P for further detail. The patient is currently sitting in a chair and eating lunch and states that he "is just fine". He states that he will "absolutely not have a colonoscopy in the next few days". He states that "[birth year]his) birthday" and he "won't have a colonoscopy right now". He states that he will have a colonoscopy "when he chooses to". Mr. Denson is a 67-year-old male with a history of type 2 diabetes mellitus, hypertension, sleep apnea, and chronic leg cellulitis and PVD. He states that he has been on antibiotics about the last 3-4 weeks and his cellulitis seemed to be worsening. He looked down at his feet and they were bleeding. He then had his son bring him to the emergency room. He was seen in the office of [facility] 12/24/2017 with pressure injury of sacral region, peripheral vascular disease, acute stasis dermatitis, iron deficiency anemia, and acquired hydrocele. He was scheduled for an ultrasound and CT of the abdomen and pelvis as an outpatient today. Dr. Guevara has repeatedly tried to convince the patient to be admitted for treatment of his cellulitis and his anemia. This a.m. patient seems comfortable. He states that he did sleep some last night. He denies chest pain and shortness of breath. Patient has been having Unna boots applied by his son to both legs. He states that he keeps the boots on for 2 weeks at a time due to the limited number of supplies he has. States sometimes when the boots come off his legs are very wet. Review of Systems - Constitutional Denies chills - ENT Denies change in voice - *Cardiovascular Denies chest pain - *Respiratory Denies cough - *Gastrointestinal Denies abdominal pain - *Neurologic Reports abnormal walking, Reports burning sensations, Reports numbness, Reports tingling/numbness/burning sensations, Reports tingling, Denies abnormal hearing, Denies abnormal speech, Denies behavioral changes, Denies dizziness, Denies seizure-like activity [facility] History Medical History: Reports:: Diabetes Mellitus Type 1, Diabetes Mellitus Type 2, Hyperlipidemia, Hypertension Denies:: Atherosclerotic Heart Disease Other Medical History: Reports: Anemia, Arthritis Other Surgeries: Yes: Other - *Social History Smoking Status: Former smoker #Yrs smoked (if former smoker): 58 Alcohol Intake: never Alcohol Intake Frequency:: other Occupational Status: disabled - Psychiatric History Expresses thoughts of harming self/others: None Suicide Plan Description: No Plan *Family Hx:: Kidney Disease Meds Home Medications Medication Instructions Recorded Confirmed Type carvedilol 6.25 mg tablet 6.25 mg PO BID 90 Days #180 11/25/17 01/06/18 History clopidogrel 75 mg tablet 75 mg PO DAILY 90 Days #90 11/25/17 01/06/18 History fenofibrate nanocrystallized 145 145 mg PO DAILY 90 Days #90 11/25/17 01/06/18 History mg tablet furosemide 80 mg tablet 80 mg PO DAILY 90 Days #90 11/25/17 01/06/18 History glimepiride 4 mg tablet 4 mg PO DAILY 90 Days #90 11/25/17 01/06/18 History hydralazine 10 mg tablet 20 mg PO BID 90 Days #360 11/25/17 01/06/18 History isosorbide mononitrate ER 30 mg 30 mg PO DAILY 90 Days #90 11/25/17 01/06/18 History tablet,extended release 24 hr linagliptin 5 mg tablet 5 mg PO DAILY 90 Days #90 11/25/17 01/06/18 History lisinopril 10 mg tablet 20 mg PO DAILY 90 Days #180 11/25/17 01/06/18 History metformin 1,000 mg tablet 1,000 mg PO DAILY 90 Days #90 11/25/17 01/06/18 His tory mupirocin 2 % topical ointment 1 applicatio TOPICAL DAILY 15 Days 11/25/17 01/05/18 History #66 omeprazole 20 mg capsule,delayed 20 mg PO DAILY 30 Days #60 11/25/17 01/06/18 History release rosuvastatin 5 mg tablet 5 mg PO DAILY 90 Days #90 11/25/17 01/06/18 History spironolactone 25 mg tablet 25 mg PO DAILY 87 Days #174 11/25/17 01/06/18 History tramadol 50 mg tablet 1 tab PO DAILY 30 Days #30 11/25/17 01/06/18 History Sulfamethoxazole/Trimethoprim 1 tab PO BID 01/05/18 01/06/18 History [Bactrim DS tablet] Ferrous Sulfate 325 mg PO DAILY 01/06/18 01/06/18 History Levocetirizine Dihydrochloride 5 mg PO HS 01/06/18 01/06/18 History [Xyzal] [place]-3 Acid Ethyl Esters [Lovaza] 1 gm PO QID 01/06/18 01/06/18 History Sucralfate [Carafate 1gm Tab] 1 gm PO ACHS 01/06/18 01/06/18 History Allergies Allergy/AdvReac Type Severity Reaction Status Date / Time erythromycin base Allergy Intermediate Verified 01/05/18 15:59 [ERYTHROMYCIN BASE] Penicillins [PENICILLINS] Allergy Intermediate Verified 01/05/18 15:59 Exam Vital signs and Labs for Last 24 Hours: Temp Pulse Resp BP Pulse Ox 98.4 F 79 18 171/88 94 L 01/07/18 07:20 01/07/18 07:20 01/07/18 07:20 01/07/18 07:20 01/07/18 10:11 Laboratory Results - last 24 hr 01/06/18 16:25: POC Glucose 129 H 01/07/18 07:07: POC Glucose 83 01/07/18 07:58: WBC 5.5, RBC 3.16 L, Hgb 8.4 L, Hct 28.8 L, MCV 91.1, MCH 26.4 L , MCHC 29.0 L, RDW 16.0, Plt Count 256, MPV 7.9, Neut % (Auto) 64.3, Lymph % (Auto) 16.0, [place] % (Auto) 4.5, Eos % (Auto) 14.5 H, Baso % (Auto) 0.8, Neut # (Auto) 3.5, Lymph # (Auto) 0.9, [place] # (Auto) 0.3, Eos # (Auto) 0.8 H, Baso # (Auto) 0.0 01/07/18 11:16: POC Glucose 137 H I & O for Last 24 hours: Intake & Output 01/05/18 01/06/18 01/07/1801/08/18 11:59 11:59 11:59 11:59 Intake Total 1099 / 1099 2110 / 2110 Output Total 360 / 360 Balance 1099 / 1099 1750 / 1750 Weight 305 lb 6 oz 300 lb Microbiology Reports for the Last 24 Hours: Microbiology 01/06/18 08:30 Leg,Right - Wound Gram Stain - Final 01/06/18 08:30 Leg,Right - Wound Wound Culture - Preliminary 01/06/18 09:35 Urine,Clean Catch Urine Culture - Preliminary NO GROWTH AFTER 24 HOURS - Constitutional no acute distress - *Routine Respiratory Exam Absent: respiratory distress - *Routine Abdominal Exam Present: soft Results - Labs 01/07/18 07:58 01/06/18 05:36 Laboratory Results - last 24 hr 01/06/18 16:25: POC Glucose 129 H 01/07/18 07:07: POC Glucose 83 01/07/18 07:58: WBC 5.5, RBC 3.16 L, Hgb 8.4 L, Hct 28.8 L, MCV 91.1, MCH 26.4 L , MCHC 29.0 L, RDW 16.0, Plt Count 256, MPV 7.9, Neut % (Auto) 64.3, Lymph % (Au to) 16.0, [place] % (Auto) 4.5, Eos % (Auto) 14.5 H, Baso % (Auto) 0.8, Neut # (Auto) 3.5, Lymph # (Auto) 0.9, [place] # (Auto) 0.3, Eos # (Auto) 0.8 H, Baso # (Auto) 0.0 01/07/18 11:16: POC Glucose 137 H Assessment and Plan (1) Lymphedema of both lower extremities Current visit: Yes Status: Acute Category: Medical Code(s): I89.0 - Lymphedema, not elsewhere classified (2) Bilateral cellulitis of lower leg Current visit: Yes Status: Acute Category: Medical Code(s): L03.116 - Cellulitis of left lower limb; L03.115 - Cellulitis of right lower limb (3) Renal insufficiency Current visit: Yes Status: Acute Category: Medical Code(s): N28.9 - Disord er of kidney and ureter, unspecified (4) Obesity, Class III, BMI 40-49.9 (morbid obesity) Current visit: Yes Status: Acute Category: Medical Code(s): E66.01 - Morbid (severe) obesity due to excess calories (5) Diabetes mellitus Current visit: Yes Status: Acute Qualifiers: Diabetes mellitus type: type 2 Diabetes mellitus care home insulin use: with manager intermediate use Diabetes mellitus complication detail: with chronic kidney disease Chronic kidney disease stage: unspecified stage Category: Medical Code(s): E11.9 - Type 2 diabetes mellitus without complications (6) Anemia Current visit: Yes Status: Acute Qualifiers: Anemia type: unspecified type Qualified Code(s): D64.9 - Anemia, unspecified Category: Medical Code(s): D64.9 - Anemia, unspecified He is currently eating a diabetic diet and would be unable to undergo bowel preparation today for colonoscopy tomorrow. He could potentially be prepared for endoscopy on Friday; however he adamantly refuses to undergo this procedure. If the patient does decide to undergo endoscopic evaluation, the addition of esophagogastroduodenoscopy is reasonable. Seemingly, the patient wishes to never undergo EGD or colonoscopy. If he does alter his opinion with regard to undergoing these procedures the general surgery service or the gastroenterology service and [facility] will be happy to reevaluate Mr. Denson.
[2018-01-07 14:01] LABS: Anion Gap 11.7 mEq/L (5-15); Potassium 5.7 mmoL/L (3.5-5.1)
--- NOTE | 2018-01-07 14:45 | Pharmacy Consult Notes ---
- Pharmacy Consult Date: 01/07/18 Time: 14:40 Referring provider: DR. TELLEZ Reason for Consult:: VANCOMYCIN TROUGH LEVEL Allergies and ADEs:: Allergies Allergy/AdvReac Type Severity Reaction Status Date / Time erythromycin base Allergy Intermediate Verified 01/05/18 15:59 [ERYTHROMYCIN BASE] Penicillins [PENICILLINS] Allergy Intermediate Verified 01/05/18 15:59 Home Medications:: Home Medications Medication Instructions Recorded Confirmed Type carvedilol 6.25 mg tablet 6.25 mg PO BID 90 Days #180 11/25/17 01/06/18 History clopidogrel 75 mg tablet 75 mg PO DAILY 90 Days #90 11/25/17 01/06/18 History fenofibrate nanocrystallized 145 145 mg PO DAILY 90 Days #90 11/25/17 01/06/18 History mg tablet furosemide 80 mg tablet 80 mg PO DAILY 90 Days #90 11/25/17 01/06/18 History glimepiride 4 mg tablet 4 mg PO DAILY 90 Days #90 11/25/17 01/06/18 History hydralazine 10 mg tablet 20 mg PO BID 90 Days #360 11/25/17 01/06/18 History isosorbide mononitrate ER 30 mg 30 mg PO DAILY 90 Days #90 11/25/17 01/06/18 History tablet,extended release 24 hr linagliptin 5 mg tablet 5 mg PO DAILY 90 Days #90 11/25/17 01/06/18 History lisinopril 10 mg tablet 20 mg PO DAILY 90 Days #180 11/25/17 01/06/18 History metformin 1,000 mg tablet 1,000 mg PO DAILY 90 Days #90 11/25/17 01/06/18 History mupirocin 2 % topical ointment 1 applicatio TOPICAL DAILY 15 Days 11/25/17 01/05/18 History #66 omeprazole 20 mg capsule,delayed 20 mg PO DAILY 30 Days #60 11/25/17 01/06/18 History release rosuvastatin 5 mg tablet 5 mg PO DAILY 90 Days #90 11/25/17 01/06/18 History spironolactone 25 mg tablet 25 mg PO DAILY 87 Days #174 11/25/17 01/06/18 History tramadol 50 mg tablet 1 tab PO DAILY 30 Days #30 11/25/17 01/06/18 History Sulfamethoxazole/Trimethoprim 1 tab PO BID 01/05/18 01/06/18 History [Bactrim DS tablet] Ferrous Sulfate 325 mg PO DAILY 01/06/18 01/06/18 History Levocetirizine Dihydrochloride 5 mg PO HS 01/06/18 01/06/18 History [Xyzal] [place]-3 Acid Ethyl Esters [Lovaza] 1 gm PO QID 01/06/18 01/06/18 History Sucralfate [Carafate 1gm Tab] 1 gm PO ACHS 01/06/18 01/06/18 History Height: 1.7 m Weight: 136.078 kg Laboratory Results:: Laboratory Results - last 24 hr 01/06/18 16:25: POC Glucose 129 H 01/07/18 07:07: POC Glucose 83 01/07/18 07:58: WBC 5.5, RBC 3.16 L, Hgb 8.4 L, Hct 28.8 L, MCV 91.1, MCH 26.4 L , MCHC 29.0 L, RDW 16.0, Plt Count 256, MPV 7.9, Neut % (Auto) 64.3, Lymph % (Auto) 16.0, [place] % (Auto) 4.5, Eos % (Auto) 14.5 H, Baso % (Auto) 0.8, Neut # (Auto) 3.5, Lymph # (Auto) 0.9, [place] # (Auto) 0.3, Eos # (Auto) 0.8 H, Baso # (Auto) 0.0 01/07/18 11:16: POC Glucose 137 H 01/07/18 13:36: Vancomycin Trough 8.2 L 01/07/18 13:36: Sodium 141, Potassium 5.7 H, Chloride 105, Carbon Dioxide 30, Anion Gap 11.7, BUN 47 H, Creatinine 3.30 H, Estimated Creat Clear 20, Estimated GFR 19 L*, Est GFR ( Amer) 23 L D, Glucose 189 H, Calcium 8.0 L Medical History: Reports:: Diabetes Mellitus Type 1, Diabetes Mellitus Type 2, Hyperlipidemia, Hypertension Denies:: Atherosclerotic Heart Disease Assessment and Plan (1) Lymphedema of both lower extremities Current visit: Yes Status: Acute Category: Medical Code(s): I89.0 - Lymphedema, not elsewhere classified (2) Bilateral cellulitis of lower leg Current visit: Yes Status: Acute Category: Medical Code(s): L03.116 - Cellulitis of left lower limb; L03.115 - Cellulitis of right lower limb (3) Renal insufficiency Current visit: Yes Status: Acute Category: Medical Code(s): N28.9 - Disorder of kidney and ureter, unspecified (4) Obesity, Class III, BMI 40-49.9 (morbid obesity) Current visit: Yes Status: Acute Category: Medical Code(s): E66.01 - Morbid (severe) obesity due to excess calories (5) Diabetes mellitus Current visit: Yes Status: Acute Qualifiers: Diabetes mellitus type: type 2 Diabetes mellitus terminal operations manager insulin use: with prison use Diabetes mellitus complication detail: with chronic kidney disease Chronic kidney disease stage: unspecified stage Category: Medical Code(s): E11.9 - Type 2 diabetes mellitus without complications (6) Anemia Current visit: Yes Status: Acute Qualifiers: Anemia type: unspecified type Qualified Code(s): D64.9 - Anemia, unspecified Category: Medical Code(s): D64.9 - Anemia, unspecified - Assessment and plan all Dx Assessment and Plan for all problems:: BASED ON PATIENT'S VANCOMYCIN TROUGH LEVEL OF 8.2 MCG/ML AFTER THE 1ST DOSE, RECOMMEND CONTINUING WITH CURRENT DOSE OF VANCOMYCIN 2000 MG Q48H AT THIS TIME. WILL OBTAIN VANCOMYCIN TROUGH AND BMP PRIOR TO NEXT DOSE DUE TO PATIENT'S POOR RENAL FUNCTION. PHARMACY WILL FOLLOW DAILY AND ADJUST APPROPRIATE. IVAN CAR, PHARMD
[2018-01-08 06:43] LABS: Basophils % 0.5 % (0.1-2.0); Eosinophils # 0.7 K/mm3 (0.0-0.4); Eosinophils % 14.5 % (0.1-12.0); Hematocrit 26.5 % (42.0-52.0); Lymphocytes # 0.9 K/mm3 (0.7-4.5); Lymphocytes % 17.4 K/mm3 (10-50); Mean Corpuscular HGB Conc 28.6 g/dL (31.8-35.4); Mean Corpuscular Hemoglobin 25.8 pg (27.0-31.2); Mean Corpuscular Volume 90.4 fl (80-94); Mean Platelet Volume 7.4 fl (7.4-10.4); Monocytes # 0.3 K/mm3 (0.1-1.0); Monocytes % 5.7 % (1.7-9.3); Neutrophils # 3.1 K/mm3 (1.8-7.8); Neutrophils % 61.8 % (37.0-80.0); Platelet Count 258 K/mm3 (142-424); Red Blood Count 2.93 M/mm3 (4.60-6.20); Red Cell Distribution Width 15.9 % (11.5-17.5)
[2018-01-08 06:48] LABS: Hemoglobin 7.6 g/dL (14.1-18.0)
[2018-01-08 06:57] LABS: Anion Gap 8.8 mEq/L (5-15); Calcium 8.1 mg/dL (8.5-10.1); Potassium 5.8 mmoL/L (3.5-5.1)
--- NOTE | 2018-01-08 09:07 | Progress Note ---
Internal Medicine - PN: Subj *Date: 01/08/18 *Time: 09:03 Interval history: Pt is sitting up in motorized chair without complaint this morning. He had breakfast and rested well overnight. Exam Vital signs and Labs for Last 24 Hours: Temp Pulse Resp BP Pulse Ox 97.9 F 99 H 24 142/37 92 L 01/08/18 08:00 01/08/18 08:00 01/08/18 08:00 01/08/18 08:00 01/08/18 08:00 Laboratory Results - last 24 hr 01/06/18 09:35: C. trachomatis (LIZANDRO) Negative, N. gonorrhoeae (LIZANDRO) Negative 01/06/18 20:42: POC Glucose 153 H 01/07/18 11:16: POC Glucose 137 H 01/07/18 13:36: Vancomycin Trough 8.2 L 01/07/18 13:36: Sodium 141, Potassium 5.7 H, Chloride 105, Carbon Dioxide 30, Anion Gap 11.7, BUN 47 H, Creatinine 3.30 H, Estimated Creat Clear 20, Estimated GFR 19 L*, Est GFR ( Amer) 23 L D, Glucose 189 H, Calcium 8.0 L 01/07/18 16:46: POC Glucose 196 H 01/07/18 20:22: POC Glucose 230 H 01/08/18 05:52: POC Glucose 114 H 01/08/18 06:15: WBC 5.0, RBC 2.93 L, Hgb 7.6 L*, Hct 26.5 L, MCV 90.4, MCH 25.8 L, MCHC 28.6 L, RDW 15.9, Plt Count 258, MPV 7.4, Neut % (Auto) 61.8, Lymph % (Auto) 17.4, [place] % (Auto) 5.7, Eos % (Auto) 14.5 H, Baso % (Auto) 0.5, Neut # (Auto) 3.1, Lymph # (Auto) 0.9, [place] # (Auto) 0.3, Eos # (Auto) 0.7 H, Baso # (Auto) 0.0 01/08/18 06:15: Sodium 140, Potassium 5.8 H, Chloride 107, Carbon Dioxide 30, Anion Gap 8.8, BUN 43 H, Creatinine 3.16 H, Estimated Creat Clear 20, Estimated GFR 20 L, Est GFR ( Amer) 24 L, Glucose 105 D, Calcium 8.1 L I & O for Last 24 hours: Intake & Output 01/05/18 01/06/18 01/07/18 01/08/18 11:59 11:59 11:59 11:59 Intake Total 1099 / 1099 2110 / 2110 951 / 951 Output Total 360 / 360 Balance 1099 / 1099 1750 / 1750 951 / 951 Weight 305 lb 6 oz 300 lb 300 lb 3.537 oz Microbiology Reports for the Last 24 Hours: Microbiology 01/05/18 14:49 Blood Blood Culture - Preliminary NO GROWTH AFTER 48 HOURS 01/05/18 14:49 Blood Blood Culture - Preliminary NO GROWTH AFTER 48 HOURS 01/06/18 08:30 Leg,Right - Wound Gram Stain - Final 01/06/18 08:30 Leg,Right - Wound Wound Culture - Preliminary 01/06/18 09:35 Urine,Clean Catch Urine Culture - Preliminary NO GROWTH AFTER 24 HOURS - Constitutional no acute distress - *Routine Respiratory Exam Present: CTA bilaterally - *Routine Cardiovascular Exam Present: RRR - *Routine Abdominal Exam Present: soft, normoactive bowel sounds. Absent: tenderness, distended Comments: obese - *Routine Extremities Exam Comments: BLE wrapped knee to toe, note some edema of toes bilaterally - *Routine Neurological Exam Present: alert, oriented X3, normal speech. Absent: facial asymmetry Assessment and Plan (1) Lymphedema of both lower extremities Current visit: Yes Status: Acute Category: Medical Code(s): I89.0 - Lymphedema, not elsewhere classified (2) Bilateral cellulitis of lower leg Current visit: Yes Status: Acute Category: Medical Code(s): L03.116 - Cellulitis of left lower limb; L03.115 - Cellulitis of right lower limb (3) Renal insufficiency Current visit: Yes Status: Acute Category: Medical Code(s): N28.9 - Disorder of kidney and ureter, unspecified (4) Obesity, Class III, BMI 40-49.9 (morbid obesity) Current visit: Yes Status: Acute Category: Medical Code(s): E66.01 - Morbid (severe) obesity due to excess calories (5) Diabetes mellitus Current visit: Yes Status: Acute Qualifiers: Diabetes mellitus type: type 2 Diabetes mellitus mcfp insulin use: with mcfp use Diabetes mellitus complication detail: with chronic kidney disease Chronic kidney disease stage: unspecified stage Category: Medical Code(s): E11.9 - Type 2 diabetes mellitus without complications - Assessment and plan all Dx Assessment and Plan for all problems:: Further per podiatry.
--- NOTE | 2018-01-08 11:03 | Progress Note ---
Subjective Date: 01/08/18 Time: 07:55 Principal diagnosis: B/L LE LYMPHEDEMA Interval history: Patient is sitting resting in the wheelchair with legs on floor. He states the legs feel better and there is less pain. He states that "the other doctors talked him about surgery" but he is refusing to proceed with colonoscopy at this time. PN: Obj Ex Vital signs: Temp Pulse Resp BP Pulse Ox 98.1 F 80 18 130/79 98 01/08/18 10:35 01/08/18 10:35 01/08/18 10:35 01/08/18 10:35 01/08/18 10:35 - Constitutional no acute distress - Routine HEENT Exam Head: Present: normocephalic - Routine Neck Exam Absent: JVD - Routine Respiratory Exam Absent: respiratory distress - Routine Extremities Exam Present: edema (B/L LE). Absent: amputation - Detailed Lower Extremity Exam Comments: Redness and swelling have improved with Unna boots. Weakly palpable pedal pulses, secondary to b/l LE swelling. 2+ pitting edema with lymphatic drainage. Blistering noted on the anterior and posterior aspects of right leg. Edema and erythema noted to both legs, improving. On the dorsal aspect of the left second toe there is a small wound with a granular wound bed measuring 0.90.60.1 cm. On the right foot there is a small wound limited to skin breakdown on the distal second toe measuring 0.30.30.0 cm. Wound base granular with no signs of infection. There is another small wound on the right third dorsal toe, wound base granular, limited to breakdown of subcutaneous tissue measuring 0.40.50.1 cm. None of the wounds have active purulence or drainage. No pain to palpation. Minimal interdigital maceration noted. No evidence of fissuring or cracking between the toes. - Routine Skin Exam Present: erythema. Absent: intact - Routine Neurological Exam Present: alert, oriented X3 Progress Note: A&P (1) Lymphedema of both lower extremities Status: Acute Current Visit: Yes (2) Bilateral cellulitis of lower leg Status: Acute Current Visit: Yes (3) Renal insufficiency Status: Acute Current Visit: Yes (4) Obesity, Class III, BMI 40-49.9 (morbid obesity) Status: Acute Current Visit: Yes (5) Diabetes mellitus Status: Acute Current Visit: Yes Assessment and Plan for All Diagnoses:: B/L LE LYMPHEDEMA, CELLULITIS: Last DFC:11/25/17 Dressings clean dry and intact to both lower extremities. Dressings removed and the lower extremities were cleansed with Hibiclens. Overall swelling and re dness has improved. There are still blisters noted on the right, nonpainful. 1. Cleansed with hibiclens to b/l LE 2. Application of unna boots today 3. Wound culture 01/06/18: prelim no growth 4. Continue IV abx for cellulitis, upon discharge b/l LE cellulitis can be treated with po Abx x 2 weeks 5. Wound care for re-application of unna boots b/l 6. Patient needs to follow up out patient for DFC and for DM shoe fitting ([employer]) 8. Okay to discharge from Podiatry stand point, stable lymphedema b/l that will need intermediate project manager care 9. Will need continued compression therapy upon discharge (wound care, lymphedema clinic versus [facility] for Unna boots)
[2018-01-08 18:26] LABS: Hematocrit 32.6 % (42.0-52.0)
[2018-01-08 18:27] LABS: Hemoglobin 9.6 g/dL (14.1-18.0)
--- NOTE | 2018-01-09 08:34 | Progress Note ---
Internal Medicine - PN: Subj *Date: 01/09/18 *Time: 08:32 Interval history: Patient states he is feeling well this morning. He ate well and slept well. He had his Unna boots changed yesterday and was seen by Dr. Olmos. Her note is appreciated. He denies any pain. Exam Vital signs and Labs for Last 24 Hours: Temp Pulse Resp BP Pulse Ox 98.2 F 83 20 168/58 95 01/09/18 08:00 01/09/18 08:00 01/09/18 08:00 01/09/18 08:00 01/09/18 08:00 Laboratory Results - last 24 hr 01/05/18 17:10: Blood Type O Positive, Antibody Screen Negative, Crossmatch (AHG) See Detail 01/06/18 09:35: C. trachomatis (LIZANDRO) Negative, N. gonorrhoeae (LIZANDRO) Negative 01/06/18 20:42: POC Glucose 153 H 01/08/18 11:55: POC Glucose 130 H 01/08/18 18:03: Hgb 9.6 L D, Hct 32.6 L 01/08/18 20:05: POC Glucose 158 H 01/09/18 06:21: POC Glucose 88 I & O for Last 24 hours: Intake & Output 01/06/18 01/07/18 01/08/18 01/09/18 11:59 11:59 11:59 11:59 Intake Total 1099 / 1099 2110 / 2110 951 / 951 1700 / 1700 Output Total 360 / 360 Balance 1099 / 1099 1750 / 1750 951 / 951 1700 / 1700 Weight 305 lb 6 oz 300 lb 300 lb 3.537 oz 310 lb Microbiology Reports for the Last 24 Hours: Microbiology 01/06/18 08:30 Leg,Right - Wound Gram Stain - Final 01/06/18 08:30 Leg,Right - Wound Wound Culture - Final Pseudomonas aeruginosa Staph cohnii ssp urealyticus Enterococcus faecalis 01/06/18 09:35 Urine,Clean Catch Urine Culture - Final NO GROWTH AFTER 48 HOURS - Constitutional no acute distress - *Routine Respiratory Exam Present: CTA bilaterally - *Routine Cardiovascular Exam Present: RRR - *Routine Abdominal Exam Present: soft, normoactive bowel sounds. Absent: tenderness - *Routine Extremities Exam Present: edema (Unna boots in place) Assessment and Plan (1) Lymphedema of both lower extremities Current visit: Yes Status: Acute Category: Medical Code(s): I89.0 - Lymphedema, not elsewhere classified (2) Bilateral cellulitis of lower leg Current visit: Yes Status: Acute Category: Medical Code(s): L03.116 - Cellulitis of left lower limb; L03.115 - Cellulitis of right lower limb (3) Renal insufficiency Current visit: Yes Status: Acute Category: Medical Code(s): N28.9 - Disorder of kidney and ureter, unspecified (4) Obesity, Class III, BMI 40-49.9 (morbid obesity) Current visit: Yes Status: Acute Category: Medical Code(s): E66.01 - Morbid (severe) obesity due to excess calories (5) Diabetes mellitus Current visit: Yes Status: Acute Qualifiers: Diabetes mellitus type: type 2 Diabetes mellitus remote computer terminal operator insulin use: with detention use Diabetes mellitus complication detail: with chronic kidney disease Chronic kidney disease stage: unspecified stage Category: Medical Code(s): E11.9 - Type 2 diabetes mellitus without complications - Assessment and plan all Dx Assessment and Plan for all problems:: Dr. Olmos felt the patient could be discharged from a podiatry standpoint. He will need continued antibiotics and outpatient wound care. Will discuss disposition with Dr. Guevara.
--- NOTE | 2018-01-09 08:44 | Progress Note ---
Internal Medicine - PN: Subj *Date: 01/09/18 *Time: 08:44 Exam Vital signs and Labs for Last 24 Hours: Temp Pulse Resp BP Pulse Ox 98.2 F 83 20 168/58 95 01/09/18 08:00 01/09/18 08:00 01/09/18 08:00 01/09/18 08:00 01/09/18 08:00 Laboratory Results - last 24 hr 01/05/18 17:10: Blood Type O Positive, Antibody Screen Negative, Crossmatch (AHG) See Detail 01/06/18 20:42: POC Glucose 153 H 01/08/18 11:55: POC Glucose 130 H 01/08/18 18:03: Hgb 9.6 L D, Hct 32.6 L 01/08/18 20:05: POC Glucose 158 H 01/09/18 06:21: POC Glucose 88 I & O for Last 24 hours: Intake & Output 01/06/18 01/07/18 01/08/18 01/09/18 23:59 23:59 23:59 23:59 Intake Total 2309 / 2309 1131 / 1131 1700 / 1700 480 / 480 Output Total 360 / 360 Balance 1949 / 1949 1131 / 1131 1700 / 1700 480 / 480 Weight 138.516 kg 136.078 kg 136.178 kg 140.614 kg Microbiology Reports for the Last 24 Hours: Microbiology 01/06/18 08:30 Leg,Right - Wound Gram Stain - Final 01/06/18 08:30 Leg,Right - Wound Wound Culture - Final Pseudomonas aeruginosa Staph cohnii ssp urealyticus Enterococcus faecalis 01/06/18 09:35 Urine,Clean Catch Urine Culture - Final NO GROWTH AFTER 48 HOURS Assessment and Plan (1) Lymphedema of both lower extremities Current visit: Yes Status: Acute Category: Medical Code(s): I89.0 - Lymphedema, not elsewhere classified (2) Bilateral cellulitis of lower leg Current visit: Yes Status: Acute Category: Medical Code(s): L03.116 - Cellulitis of left lower limb; L03.115 - Cellulitis of right lower limb (3) Renal insufficiency Current visit: Yes Status: Acute Category: Medical Code(s): N28.9 - Disorder of kidney and ureter, unspecified (4) Obesity, Class III, BMI 40-49.9 (morbid obesity) Current visit: Yes Status: Acute Category: Medical Code(s): E66.01 - Morbid (severe) obesity due to excess calories (5) Diabetes mellitus Current visit: Yes Status: Acute Qualifiers: Diabetes mellitus type: type 2 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
[2018-01-09 10:02] LABS: Anion Gap 9.7 mEq/L (5-15); Basophils % 0.8 % (0.1-2.0); Calcium 8.3 mg/dL (8.5-10.1); Eosinophils # 0.8 K/mm3 (0.0-0.4); Eosinophils % 15.9 % (0.1-12.0); Hematocrit 33.1 % (42.0-52.0); Hemoglobin 9.5 g/dL (14.1-18.0); Lymphocytes # 0.8 K/mm3 (0.7-4.5); Lymphocytes % 14.9 K/mm3 (10-50); Mean Corpuscular HGB Conc 28.7 g/dL (31.8-35.4); Mean Corpuscular Hemoglobin 25.8 pg (27.0-31.2); Mean Platelet Volume 7.6 fl (7.4-10.4); Monocytes # 0.3 K/mm3 (0.1-1.0); Neutrophils # 3.2 K/mm3 (1.8-7.8); Neutrophils % 63.4 % (37.0-80.0); Platelet Count 295 K/mm3 (142-424); Potassium 5.7 mmoL/L (3.5-5.1); Red Blood Count 3.68 M/mm3 (4.60-6.20); White Blood Count 5.1 K/mm3 (4.8-10.8)
[2018-01-09 13:04] LABS: Anion Gap 10.8 mEq/L (5-15); Calcium 8.6 mg/dL (8.5-10.1); Potassium 5.8 mmoL/L (3.5-5.1)
--- NOTE | 2018-01-09 13:32 | Pharmacy Consult Notes ---
- Pharmacy Consult Date: 01/09/18 Time: 13:30 Referring provider: DR. TELLEZ Reason for Consult:: VANCOMYCIN LEVEL Allergies and ADEs:: Allergies Allergy/AdvReac Type Severity Reaction Status Date / Time erythromycin base Allergy Intermediate Verified 01/05/18 15:59 [ERYTHROMYCIN BASE] Penicillins [PENICILLINS] Allergy Intermediate Verified 01/05/18 15:59 Home Medications:: Home Medications Medication Instructions Recorded Confirmed Type carvedilol 6.25 mg tablet 6.25 mg PO BID 90 Days #180 11/25/17 01/06/18 History clopidogrel 75 mg tablet 75 mg PO DAILY 90 Days #90 11/25/17 01/06/18 History fenofibrate nanocrystallized 145 145 mg PO DAILY 90 Days #90 11/25/17 01/06/18 History mg tablet furosemide 80 mg tablet 80 mg PO DAILY 90 Days #90 11/25/17 01/06/18 History glimepiride 4 mg tablet 4 mg PO DAILY 90 Days #90 11/25/17 01/06/18 History hydralazine 10 mg tablet 20 mg PO BID 90 Days #360 11/25/17 01/06/18 History isosorbide mononitrate ER 30 mg 30 mg PO DAILY 90 Days #90 11/25/17 01/06/18 History tablet,extended release 24 hr linagliptin 5 mg tablet 5 mg PO DAILY 90 Days #90 11/25/17 01/06/18 History lisinopril 10 mg tablet 20 mg PO DAILY 90 Days #180 11/25/17 01/06/18 History metformin 1,000 mg tablet 1,000 mg PO DAILY 90 Days #90 11/25/17 01/06/18 History mupirocin 2 % topical ointment 1 applicatio TOPICAL DAILY 15 Days 11/25/17 01/05/18 History #66 omeprazole 20 mg capsule,delayed 20 mg PO DAILY 30 Days #60 11/25/17 01/06/18 History release rosuvastatin 5 mg tablet 5 mg PO DAILY 90 Days #90 11/25/17 01/06/18 History spironolactone 25 mg tablet 25 mg PO DAILY 87 Days #174 11/25/17 01/06/18 History tramadol 50 mg tablet 1 tab PO DAILY 30 Days #30 11/25/17 01/06/18 History Sulfamethoxazole/Trimethoprim 1 tab PO BID 01/05/18 01/06/18 History [Bactrim DS tablet] Ferrous Sulfate 325 mg PO DAILY 01/06/18 01/06/18 History Levocetirizine Dihydrochloride 5 mg PO HS 01/06/18 01/06/18 History [Xyzal] [place]-3 Acid Ethyl Esters [Lovaza] 1 gm PO QID 01/06/18 01/06/18 History Sucralfate [Carafate 1gm Tab] 1 gm PO ACHS 01/06/18 01/06/18 History Height: 1.7 m Weight: 140.614 kg Laboratory Results:: Laboratory Results - last 24 hr 01/05/18 17:10: Blood Type O Positive, Antibody Screen Negative, Crossmatch (AHG) See Detail 01/08/18 11:55: POC Glucose 130 H 01/08/18 18:03: Hgb 9.6 L D, Hct 32.6 L 01/08/18 20:05: POC Glucose 158 H 01/09/18 06:21: POC Glucose 88 01/09/18 09:44: WBC 5.1, RBC 3.68 L D, Hgb 9.5 L, Hct 33.1 L, MCV 90.0, MCH 25.8 L, MCHC 28.7 L, RDW 16.0, Plt Count 295, MPV 7.6, Neut % (Auto) 63.4, Lymph % (Auto) 14.9, [place] % (Auto) 5.0, Eos % (Auto) 15.9 H, Baso % (Auto) 0.8, Neut # (Auto) 3.2, Lymph # (Auto) 0.8, [place] # (Auto) 0.3, Eos # (Auto) 0.8 H, Baso # (Auto) 0.0 01/09/18 09:44: Sodium 141, Potassium 5.7 H, Chloride 107, Carbon Dioxide 30, Anion Gap 9.7, BUN 41 H, Creatinine 2.71 H, Estimated Creat Clear 23, Estimated GFR 23 L, Est GFR ( Amer) 28 L, Glucose 203 H, Calcium 8.3 L 01/09/18 11:26: POC Glucose 200 H 01/09/18 12:31: Vancomycin Trough 8.7 L 01/09/18 12:31: Sodium 140, Potassium 5.8 H, Chloride 106, Carbon Dioxide 29, Anion Gap 10.8, BUN 41 H, Creatinine 2.70 H, Estimated Creat Clear 23, Estimated GFR 24 L, Est GFR ( Amer) 28 L, Glucose 174 H, Calcium 8.6 Medical History: Reports:: Diabetes Mellitus Type 1, Diabetes Mellitus Type 2, Hyperlipidemia, Hypertension Denies:: Atherosclerotic Heart Disease Assessment and Plan (1) Lymphedema of both lower extremities Current visit: Yes Status: Acute Category: Medical Code(s): I89.0 - Lymphedema, not elsewhere classified (2) Bilateral cellulitis of lower leg Current visit: Yes Status: Acute Category: Medical Code(s): L03.116 - Cellulitis of left lower limb; L03.115 - Cellulitis of right lower limb (3) Renal insufficiency Current visit: Yes Status: Acute Category: Medical Code(s): N28.9 - Disord er of kidney and ureter, unspecified (4) Obesity, Class III, BMI 40-49.9 (morbid obesity) Current visit: Yes Status: Acute Category: Medical Code(s): E66.01 - Morbid (severe) obesity due to excess calories (5) Diabetes mellitus Current visit: Yes Status: Acute Qualifiers: Diabetes mellitus type: type 2 Diabetes mellitus 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 PATIENT'S RENAL FUNCTION REMAINS THE SAME AND VANCOMYCIN TROUGH LEVEL TODAY WAS 8.7 MCG/ML. PHARMACY WILL CONTINUE TO MONITOR AND ADJUST DOSE APPROPRIATE. ROBER LEMUS, REMBERTOD
--- NOTE | 2018-01-09 16:19 | Progress Note ---
Internal Medicine - PN: Subj *Date: 01/09/18 *Time: 16:13 Interval history: We are attempting to accomplish discharge of this patient. Ideally he would have received colonoscopy during this hospital stay, but he steadfastly refuses. The risks of continued blood loss anemia with recurrent transfusions wqas detailed to the patient. See his culture results. He will need a PICC line and outpatient IV antibiotics at our infusion lab. Dr. Guevara has spoken with Case Mgmt and with the Pharmacy. The patient will need Tobramycin and Vancomycin on a q48hr schedule. He will continue wound care at [facility]. His home situation is less than desirable. At home is his autistic son, who assists in dressing changes. They have no automobile transportation. Antonio does not seem to have full understanding of his situation. Exam Vital signs and Labs for Last 24 Hours: Temp Pulse Resp BP Pulse Ox 98.2 F 83 18 168/58 94 L 01/09/18 08:00 01/09/18 08:00 01/09/18 08:00 01/09/18 08:00 01/09/18 08:00 Laboratory Results - last 24 hr 01/05/18 17:10: Crossmatch (AHG) See Detail 01/08/18 11:55: POC Glucose 130 H 01/08/18 18:03: Hgb 9.6 L D, Hct 32.6 L 01/08/18 20:05: POC Glucose 158 H 01/09/18 06:21: POC Glucose 88 01/09/18 09:44: WBC 5.1, RBC 3.68 L D, Hgb 9.5 L, Hct 33.1 L, MCV 90.0, MCH 25.8 L, MCHC 28.7 L, RDW 16.0, Plt Count 295, MPV 7.6, Neut % (Auto) 63.4, Lymph % (Auto) 14.9, [place] % (Auto) 5.0, Eos % (Auto) 15.9 H, Baso % (Auto) 0.8, Neut # (Auto) 3.2, Lymph # (Auto) 0.8, [place] # (Auto) 0.3, Eos # (Auto) 0.8 H, Baso # (Auto) 0.0 01/09/18 09:44: Sodium 141, Potassium 5.7 H, Chloride 107, Carbon Dioxide 30, Anion Gap 9.7, BUN 41 H, Creatinine 2.71 H, Estimated Creat Clear 23, Estimated GFR 23 L, Est GFR ( Amer) 28 L, Glucose 203 H, Calcium 8.3 L 01/09/18 11:26: POC Glucose 200 H 01/09/18 12:31: Vancomycin Trough 8.7 L 01/09/18 12:31: Sodium 140, Potassium 5.8 H, Chloride 106, Carbon Dioxide 29, Anion Gap 10.8, BUN 41 H, Creatinine 2.70 H, Estimated Creat Clear 23, Estimated GFR 24 L, Est GFR ( Amer) 28 L, Glucose 174 H, Calcium 8.6 I & O for Last 24 hours: Intake & Output 01/07/18 01/08/18 01/09/18 01/10/18 11:59 11:59 11:59 11:59 Intake Total 2110 / 2110 951 / 951 1700 / 1700 Output Total 360 / 360 Balance 1750 / 1750 951 / 951 1700 / 1700 Weight 300 lb 300 lb 3.537 oz 310 lb 310 lb Microbiology Reports for the Last 24 Hours: Microbiology 01/06/18 08:30 Leg,Right - Wound Gram Stain - Final 01/06/18 08:30 Leg,Right - Wound Wound Culture - Final Pseudomonas aeruginosa Staph cohnii ssp urealyticus Enterococcus faecalis Assessment and Plan (1) Lymphedema of both lower extremities Current visit: Yes Status: Acute Category: Medical Code(s): I89.0 - Lymphedema, not elsewhere classified (2) Bilateral cellulitis of lower leg Current visit: Yes Status: Acute Category: Medical Code(s): L03.116 - Cellulitis of left lower limb; L03.115 - Cellulitis of right lower limb (3) Renal insufficiency Current visit: Yes Status: Acute Category: Medical Code(s): N28.9 - Disorder of kidney and ureter, unspecified (4) Obesity, Class III, BMI 40-49.9 (morbid obesity) Current visit: Yes Status: Acute Category: Medical Code(s): E66.01 - Morbid (severe) obesity due to excess calories (5) Diabetes mellitus Current visit: Yes Status: Acute Qualifiers: Diabetes mellitus type: type 2 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 Diabetes mellitus complication detail: with chronic kidney disease Chronic kidney disease stage: unspecified stage Category: Medical Code(s): E11.9 - Type 2 diabetes mellitus without complications (6) Pseudomonas aeruginosa infection Current visit: Yes Status: Acute Category: Medical Code(s): A49.8 - Other bacterial infections of unspecified site (7) Enterococcus faecalis infection Current visit: Yes Status: Acute Category: Medical Code(s): B95.2 - Enterococcus as the cause of diseases classified elsewhere (8) Chronic blood loss anemia Current visit: Yes Status: Acute Category: Medical Code(s): D50.0 - Iron deficiency anemia secondary to blood loss (chronic) (9) Noncompliance by refusing intervention or support Current visit: Yes Status: Acute Category: Medical Code(s): Z53.29 - Procedure and treatment not carried out because of patient's decision for other reasons
--- NOTE | 2018-01-09 16:31 | Pharmacy Consult Notes ---
- Pharmacy Consult Date: 01/09/18 Time: 16:28 Referring provider: DR. TELLEZ Reason for Consult:: TOBRAMYCIN DOSING Allergies and ADEs:: Allergies Allergy/AdvReac Type Severity Reaction Status Date / Time erythromycin base Allergy Intermediate Verified 01/05/18 15:59 [ERYTHROMYCIN BASE] Penicillins [PENICILLINS] Allergy Intermediate Verified 01/05/18 15:59 Home Medications:: Home Medications Medication Instructions Recorded Confirmed Type carvedilol 6.25 mg tablet 6.25 mg PO BID 90 Days #180 11/25/17 01/06/18 History clopidogrel 75 mg tablet 75 mg PO DAILY 90 Days #90 11/25/17 01/06/18 History fenofibrate nanocrystallized 145 145 mg PO DAILY 90 Days #90 11/25/17 01/06/18 History mg tablet furosemide 80 mg tablet 80 mg PO DAILY 90 Days #90 11/25/17 01/06/18 History glimepiride 4 mg tablet 4 mg PO DAILY 90 Days #90 11/25/17 01/06/18 History hydralazine 10 mg tablet 20 mg PO BID 90 Days #360 11/25/17 01/06/18 History isosorbide mononitrate ER 30 mg 30 mg PO DAILY 90 Days #90 11/25/17 01/06/18 History tablet,extended release 24 hr linagliptin 5 mg tablet 5 mg PO DAILY 90 Days #90 11/25/17 01/06/18 History lisinopril 10 mg tablet 20 mg PO DAILY 90 Days #180 11/25/17 01/06/18 History metformin 1,000 mg tablet 1,000 mg PO DAILY 90 Days #90 11/25/17 01/06/18 History mupirocin 2 % topical ointment 1 applicatio TOPICAL DAILY 15 Days 11/25/1701/05 History #66 omeprazole 20 mg capsule,delayed 20 mg PO DAILY 30 Days #60 11/25/17 01/06/18 History release rosuvastatin 5 mg tablet 5 mg PO DAILY 90 Days #90 11/25/17 01/06/18 History spironolactone 25 mg tablet 25 mg PO DAILY 87 Days #174 11/25/17 01/06/18 History tramadol 50 mg tablet 1 tab PO DAILY 30 Days #30 11/25/17 01/06/18 History Sulfamethoxazole/Trimethoprim 1 tab PO BID 01/05/18 01/06/18 History [Bactrim DS tablet] Ferrous Sulfate 325 mg PO DAILY 01/06/18 01/06/18 History Levocetirizine Dihydrochloride 5 mg PO HS 01/06/18 01/06/18 History [Xyzal] [place]-3 Acid Ethyl Esters [Lovaza] 1 gm PO QID 01/06/18 01/06/18 History Sucralfate [Carafate 1gm Tab] 1 gm PO ACHS 01/06/18 01/06/18 History Height: 1.7 m Weight: 140.614 kg Laboratory Results:: Laboratory Results - last 24 hr 01/05/18 17:10: Crossmatch (AHG) See Detail 01/08/18 11:55: POC Glucose 130 H 01/08/18 18:03: Hgb 9.6 L D, Hct 32.6 L 01/08/18 20:05: POC Glucose 158 H 01/09/18 06:21: POC Glucose 88 01/09/18 09:44: WBC 5.1, RBC 3.68 L D, Hgb 9.5 L, Hct 33.1 L, MCV 90.0, MCH 25.8 L, MCHC 28.7 L, RDW 16.0, Plt Count 295, MPV 7.6, Neut % (Auto) 63.4, Lymph % (Auto) 14.9, [place] % (Auto) 5.0, Eos % (Auto) 15.9 H, Baso % (Auto) 0.8, Neut # (Auto) 3.2, Lymph # (Auto) 0.8, [place] # (Auto) 0.3, Eos # (Auto) 0.8 H, Baso # (Auto) 0.0 01/09/18 09:44: Sodium 141, Potassium 5.7 H, Chloride 107, Carbon Dioxide 30, Anion Gap 9.7, BUN 41 H, Creatinine 2.71 H, Estimated Creat Clear 23, Estimated GFR 23 L, Est GFR ( Amer) 28 L, Glucose 203 H, Calcium 8.3 L 01/09/18 11:26: POC Glucose 200 H 01/09/18 12:31: Vancomycin Trough 8.7 L 01/09/18 12:31: Sodium 140, Potassium 5.8 H, Chloride 106, Carbon Dioxide 29, Anion Gap 10.8, BUN 41 H, Creatinine 2.70 H, Estimated Creat Clear 23, Estimated GFR 24 L, Est GFR ( Amer) 28 L, Glucose 174 H, Calcium 8.6 Medical History: Reports:: Diabetes Mellitus Type 1, Diabetes Mellitus Type 2, Hyperlipidemia, Hypertension Denies:: Atherosclerotic Heart Disease Assessment and Plan (1) Lymphedema of both lower extremities Current visit: Yes Status: Acute Category: Medical Code(s): I89.0 - Lymphedema, not elsewhere classified (2) Bilateral cellulitis of lower leg Current visit: Yes Status: Acute Category: Medical Code(s): L03.116 - Cellulitis of left lower limb; L03.115 - Cellulitis of right lower limb (3) Renal insufficiency Current visit: Yes Status: Acute Category: Medical Code(s): N28.9 - Disorder of kidney and ureter, unspecified (4) Obesity, Class III, BMI 40-49.9 (morbid obesity) Current visit: Yes Status: Acute Category: Medical Code(s): E66.01 - Morbid (severe) obesity due to excess calories (5) Diabetes mellitus Current visit: Yes Status: Acute Qualifiers: Diabetes mellitus type: type 2 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 Diabetes mellitus complication detail: with chronic kidney disease Chronic kidney disease stage: unspecified stage Category: Medical Code(s): E11.9 - Type 2 diabetes mellitus without complications (6) Pseudomonas aeruginosa infection Current visit: Yes Status: Acute Category: Medical Code(s): A49.8 - Other bacterial infections of unspecified site (7) Enterococcus faecalis infection Current visit: Yes Status: Acute Category: Medical Code(s): B95.2 - Enterococcus as the cause of diseases classified elsewhere (8) Chronic blood loss anemia Current visit: Yes Status: Acute Category: Medical Code(s): D50.0 - Iron deficiency anemia secondary to blood loss (chronic) (9) Noncompliance by refusing intervention or support Current visit: Yes Status: Acute Category: Medical Code(s): Z53.29 - Procedure and treatment not carried out because of patient's decision for other reasons - Assessment and plan all Dx Assessment and Plan for all problems:: BASED ON PATIENT'S FACTORS, RECOMMEND STARTING TOBRAMYCIN 400 MG Q48H AT THIS TIME. OBTAIN TOBRAMYCIN PEAK LEVEL ~1 HOUR POST INFUSION AND TROUGH LEVEL PRIOR TO DOSE ON FRIDAY. PHARMACY WILL FOLLOW DAILY AND ADJUST APPROPRIATE. IVAN CAR, PHARMD
--- NOTE | 2018-01-11 21:24 | Discharge Summary ---
General - General Admission date:: 01/05/18 Discharge date: 01/09/18 HPI HPI: Mr. Denson is a 67-year-old male with a history of type 2 diabetes mellitus, hypertension, sleep apnea, and chronic leg cellulitis and PVD. He states that he has been on antibiotics about the last 3-4 weeks and his cellulitis seemed to be worsening. He looked down at his feet and they were bleeding. He then had his son bring him to the emergency room. He was seen in the office of [facility] 12/24/2017 with pressure injury of sacral region, peripheral vascular disease, acute stasis dermatitis, iron deficiency anemia, and acquired hydrocele. He was scheduled for an ultrasound and CT of the abdomen and pelvis as an outpatient today. Dr. Guevara has repeatedly tried to convince the patient to be admitted for treatment of his cellulitis and his anemia. This a.m. patient seems comfortable. He states that he did sleep some last night. He is awaiting Dr. rudolph. He denies chest pain and shortness of breath. Of note, he had had Unna boots present for a week and there were maggots all over his right foot. Hospital Course Hospital Course: Dr. Olmos was consulted and IV antibiotics were continued. Dr. Olmos cleaned the lower extremities with Hibiclens. Dr. Olmos explained to the patient that Unna boots are good for compression, however he cannot leave the boot on for 2 weeks. She explained about the importance of keeping the legs and in between the toes dry to avoid bug/Maggot formation. She recommended daily hibiclens to b/l LE, application of unna boots, wound cultures, and f/u in her office upon discharge for DFC and DM shoe fitting. Surgery was also consulted d/t the patient's anemia. They wanted to do a C-scope but the patient refused this as well as a blood transfusion. Dr. Guevara did convince him to get the blood transfusion. His wound cx was positive for pseudomonas, staph, and enterococcus. A PICC line was placed and he was stable to be discharged on outpatient IV antibiotics at our infusion lab. Dr. Guevara spoke with Case Mgmt and with the Pharmacy. The patient will need Tobramycin and Vancomycin on a q48hr schedule. He will continue wound care at [facility]. Objective Vital signs: Temp Pulse Resp BP Pulse Ox 98.5 F 88 20 179/64 92 L 01/10/18 08:00 01/10/18 08:00 01/10/18 08:00 01/10/18 08:00 01/10/18 08:00 Narrative: - Constitutional no acute distress Comments: Sitting in his motorized wheelchair in his room. Appears comfortable. - *Routine HEENT Exam Head: Present: normocephalic, atraumatic Eye: Present: PERRL ENT: Present: mucous membranes moist - *Routine Neck Exam Present: supple. Absent: carotid bruit, lymphadenopathy, thyromegaly - *Routine Respiratory Exam Present: CTA bilaterally (Anteriorly and posteriorly) - *Routine Cardiovascular Exam Present: RRR - *Routine Abdominal Exam Present: soft, normoactive bowel sounds. Absent: tenderness, distended - *Routine Extremities Exam Present: edema Comments: Bilateral feet and legs to the knees with pink excoriation. Bugs again noted. Dr. Olmos present and cleaning and dressing legs. - *Routine Neurological Exam Present: alert, oriented X3 DS: Diagnosis - Discharge Diagnosis (1) Lymphedema of both lower extremities Status: Acute (2) Bilateral cellulitis of lower leg Status: Acute (3) Renal insufficiency Status: Acute (4) Obesity, Class III, BMI 40-49.9 (morbid obesity) Status: Acute (5) Diabetes mellitus Status: Acute (6) Pseudomonas aeruginosa infection Status: Acute (7) Enterococcus faecalis infection Status: Acute (8) Chronic blood loss anemia Status: Acute (9) Noncompliance by refusing intervention or support Status: Acute Discharge Plan - Patient Discharge Instructions ACTIVITY: Continue current activity DIET: continue same diet Patient Instructions: DI for Wound Infection - Follow up Plan Follow up with: Nick Guevara MD [Primary Care Provider] - 1 week Unknown provider or service follow up:: 01/09/18 15:29 Physical therapy at [facility] Disposition: Home, Self-Fci Medications: Home Medications Medication Instructions Recorded Confirmed Type carvedilol 6.25 mg tablet 6.25 mg PO BID 90 Days #180 11/25/17 01/06/18 History clopidogrel 75 mg tablet 75 mg PO DAILY 90 Days #90 11/25/17 01/06/18 History fenofibrate nanocrystallized 145 145 mg PO DAILY 90 Days #90 11/25/17 01/06/18 History mg tablet furosemide 80 mg tablet 80 mg PO DAILY 90 Days #90 11/25/17 01/06/18 History glimepiride 4 mg tablet 4 mg PO DAILY 90 Days #90 11/25/17 01/06/18 History hydralazine 10 mg tablet 20 mg PO BID 90 Days #360 11/25/17 01/06/18 History isosorbide mononitrate ER 30 mg 30 mg PO DAILY 90 Days #90 11/25/17 01/06/18 History tablet,extended release 24 hr linagliptin 5 mg tablet 5 mg PO DAILY 90 Days #90 11/25/17 01/06/18 History lisinopril 10 mg tablet 20 mg PO DAILY 90 Days #180 11/25/17 01/06/18 History metformin 1,000 mg tablet 1,000 mg PO DAILY 90 Days #90 11/25/17 01/06/18 History mupirocin 2 % topical ointment 1 applicatio TOPICAL DAILY 15 Days 11/25/17 01/05/18 History #66 omeprazole 20 mg capsule,delayed 20 mg PO DAILY 30 Days #60 11/25/17 01/06/18 History release rosuvastatin 5 mg tablet 5 mg PO DAILY 90 Days #90 11/25/17 01/06/18 History spironolactone 25 mg tablet 25 mg PO DAILY 87 Days #174 11/25/17 01/06/18 History tramadol 50 mg tablet 1 tab PO DAILY 30 Days #30 11/25/17 01/06/18 History Ferrous Sulfate 325 mg PO DAILY 01/06/18 01/06/18 History Levocetirizine Dihydrochloride 5 mg PO HS 01/06/18 01/06/18 History [Xyzal] [place]-3 Acid Ethyl Esters [Lovaza] 1 gm PO QID 01/06/18 01/06/18 History Sucralfate [Carafate 1gm Tab] 1 gm PO ACHS 01/06/18 01/06/18 History Prescriptions/Medication Reconciliation: New Tobramycin [Bethkis] 300 mg IH DIRECTED #5 ampul.neb Vancomycin HCl [Vancomycin 1000mg Vial] 2,000 mg IV Q48H #5 vial Continue mupirocin 2 % topical ointment 1 applicatio TOPICAL DAILY 15 Days #66 fenofibrate nanocrystallized 145 mg tablet 145 mg PO DAILY 90 Days #90 omeprazole 20 mg capsule,delayed release 20 mg PO DAILY 30 Days #60 furosemide 80 mg tablet 80 mg PO DAILY 90 Days #90 spironolactone 25 mg tablet 25 mg PO DAILY 87 Days #174 linagliptin 5 mg tablet 5 mg PO DAILY 90 Days #90 hydralazine 10 mg tablet 20 mg PO BID 90 Days #360 rosuvastatin 5 mg tablet 5 mg PO DAILY 90 Days #90 glimepiride 4 mg tablet 4 mg PO DAILY 90 Days #90 clopidogrel 75 mg tablet 75 mg PO DAILY 90 Days #90 isosorbide mononitrate ER 30 mg tablet,extended release 24 hr 30 mg PO DAILY 90 Days #90 carvedilol 6.25 mg tablet 6.25 mg PO BID 90 Days #180 lisinopril 10 mg tablet 20 mg PO DAILY 90 Days #180 tramadol 50 mg tablet 1 tab PO DAILY 30 Days #30 metformin 1,000 mg tablet 1,000 mg PO DAILY 90 Days #90 Sucralfate [Carafate 1gm Tab] 1 gm PO ACHS Faber-3 Acid Ethyl Esters [Lovaza] 1 gm PO QID Levocetirizine Dihydrochloride [Xyzal] 5 mg PO HS Ferrous Sulfate 325 mg PO DAILY Discontinued Sulfamethoxazole/Trimethoprim [Bactrim DS tablet] 1 tab PO BID
== END 2018-01-10 09:21 | disposition home or self-care (01) ==
LOC: 2ND 13:49 → ER 13:49 → OBSVTOIN 17:37 → 2ND 17:38
PROVIDERS: ADMIT Emergency Medicine; ATTEND Family Medicine

== ENCOUNTER → 2018-01-11 09:35 | Outpatient (CLI) | payer MEDICARE, MEDICAID, SELFPAY ==
[2018-01-11 10:35] VITALS: BP 138/70; PULSE 78; RESP 18; TEMP 36.3; O2SAT 94; BMI 47.1
[2018-01-11 10:44] LABS: Tobramycin,Trough 1.5 ug/ml (0-2.0)
--- NOTE | 2018-01-11 11:15 | [facility].PHACONS ---
- Pharmacy Consult Date: 01/11/18 Time: 11:15 Referring provider: DR. TELLEZ Reason for Consult:: VANCOMYCIN/TOBRAMYCIN LEVELS Allergies and ADEs:: Allergies Allergy/AdvReac Type Severity Reaction Status Date / Time erythromycin base Allergy Intermediate Verified 01/05/18 15:59 [ERYTHROMYCIN BASE] Penicillins [PENICILLINS] Allergy Intermediate Verified 01/05/18 15:59 Home Medications:: Home Medications Medication Instructions Recorded Confirmed Type carvedilol 6.25 mg tablet 6.25 mg PO BID 90 Days #180 11/25/17 01/06/18 History clopidogrel 75 mg tablet 75 mg PO DAILY 90 Days #90 11/25/17 01/06/18 History fenofibrate nanocrystallized 145 145 mg PO DAILY 90 Days #90 11/25/17 01/06/18 History mg tablet furosemide 80 mg tablet 80 mg PO DAILY 90 Days #90 11/25/17 01/06/18 History glimepiride 4 mg tablet 4 mg PO DAILY 90 Days #90 11/25/17 01/06/18 History hydralazine 10 mg tablet 20 mg PO BID 90 Days #360 11/25/17 01/06/18 History isosorbide mononitrate ER 30 mg 30 mg PO DAILY 90 Days #90 11/25/17 01/06/18 History tablet,extended release 24 hr linagliptin 5 mg tablet 5 mg PO DAILY 90 Days #90 11/25/17 01/06/18 History lisinopril 10 mg tablet 20 mg PO DAILY 90 Days #180 11/25/17 01/06/18 History metformin 1,000 mg tablet 1,000 mg PO DAILY 90 Days #90 11/25/17 01/06/18 History mupirocin 2 % topical ointment 1 applicatio TOPICAL DAILY 15 Days 11/25/17 01/05/18 History #66 omeprazole 20 mg capsule,delayed 20 mg PO DAILY 30 Days #60 11/25/17 01/06/18 History release rosuvastatin 5 mg tablet 5 mg PO DAILY 90 Days #90 11/25/17 01/06/18 History spironolactone 25 mg tablet 25 mg PO DAILY 87 Days #174 11/25/17 01/06/18 History tramadol 50 mg tablet 1 tab PO DAILY 30 Days #30 11/25/17 01/06/18 History Ferrous Sulfate 325 mg PO DAILY 01/06/18 01/06/18 History Levocetirizine Dihydrochloride 5 mg PO HS 01/06/18 01/06/18 History [Xyzal] [place]-3 Acid Ethyl Esters [Lovaza] 1 gm PO QID 01/06/18 01/06/18 History Sucralfate [Carafate 1gm Tab] 1 gm PO ACHS 01/06/18 01/06/18 History Height: 0 cm Weight: 0 g Laboratory Results:: Laboratory Results - last 24 hr 01/11/18 10:15: Tobramycin Trough 1.5, Vancomycin Trough 15.0 Medical History: Reports:: Diabetes Mellitus Type 1, Diabetes Mellitus Type 2, Hyperlipidemia, Hypertension Denies:: Atherosclerotic Heart Disease Assessment and Plan - Assessment and plan all Dx Assessment and Plan for all problems:: BASED ON VANCOMYCIN TROUGH LEVEL OF 15.0, RECOMMEND CONTINUING VANCOMYCIN 2500 MG IV Q48H. BASED ON TOBRAMYCIN TROUGH LEVEL OF 1.5, RECOMMEND HOLDING TOBRAMYCIN TODAY. PHARMACY WILL CONTINUE TO MONITOR AND ADJUST APPROPRIATE.
[2018-01-11 13:45] VITALS: BP 171/72; PULSE 83; RESP 18; TEMP 36.2
== END ==
PROVIDERS: Family Provider Family Medicine; PCP Family Medicine; Visit Provider Family Medicine
DX: L03.116 Cellulitis of left lower limb (principal); L03.115 Cellulitis of right lower limb; B95.2 Enterococcus as the cause of diseases classified elsewhere; I89.0 Lymphedema, not elsewhere classified; D50.0 Iron deficiency anemia secondary to blood loss (chronic)
CPT/HCPCS: 80200; 80202; 96365; 96366; J3370

== ENCOUNTER 2018-01-13 10:00 | Outpatient (CLI) | payer MEDICARE, MEDICAID, SELFPAY ==
[2018-01-13 10:45] VITALS: BP 138/74; PULSE 68; RESP 20; TEMP 36.9; O2SAT 96
[2018-01-13 11:15] VITALS: BP 128/74; PULSE 68; RESP 20; TEMP 36.9; O2SAT 96
[2018-01-13 11:50] VITALS: BP 148/74; PULSE 68; RESP 20; TEMP 36.9; O2SAT 96
[2018-01-13 12:15] VITALS: BP 144/70; PULSE 66; RESP 20; TEMP 37.1; O2SAT 96
[2018-01-13 12:50] VITALS: BP 138/74; PULSE 66; RESP 18; TEMP 36.9; O2SAT 96
== END 2018-01-13 12:50 | disposition home or self-care (01) ==
LOC: INF 10:12
PROVIDERS: Family Provider Family Medicine; PCP Family Medicine; Visit Provider Family Medicine
DX: L03.116 Cellulitis of left lower limb (principal); L03.115 Cellulitis of right lower limb; B95.2 Enterococcus as the cause of diseases classified elsewhere
CPT/HCPCS: 96365; 96366; 96367; J3370

== ENCOUNTER 2018-01-15 09:25 | Outpatient (CLI) | payer MEDICARE, MEDICAID, SELFPAY ==
[2018-01-15 09:28] VITALS: BMI 42.0
[2018-01-15 10:02] LABS: Anion Gap 11.4 mEq/L (5-15); Blood Urea Nitrogen 49 mg/dL (7-18); Calcium 8.3 mg/dL (8.5-10.1); Carbon Dioxide 28 mmol/L (21.0-32.0); Chloride 109 mmol/L (98-107); Creatinine Clearance Estimated 27 mL/min (0-300); Creatinine,Serum 2.87 mg/dL (0.70-1.30); Estimated Glomerular Filt Rate 22 ml/min (>60); GFR (African American) 27 ML/MIN (>60); Glucose 82 mg/dL (74-106); Potassium 5.4 mmoL/L (3.5-5.1); Sodium 143 mmol/L (136-145)
[2018-01-15 10:05] LABS: Tobramycin,Trough 1.3 ug/ml (0-2.0)
[2018-01-15 10:06] LABS: Vancomycin,Trough 18.8 mcg/ml (10.0-20.0)
[2018-01-15 11:00] VITALS: BP 175/54; PULSE 84; RESP 18; TEMP 36.8
--- NOTE | 2018-01-15 11:24 | P.CONPHA_ITS ---
- Pharmacy Consult Date: 01/15/18 Time: 11:06 Referring provider: DR. TELLEZ Reason for Consult:: VANCOMYCIN AND TOBRAMYCIN LEVELS Allergies and ADEs:: Allergies Allergy/AdvReac Type Severity Reaction Status Date / Time erythromycin base Allergy Intermediate Verified 01/05/18 15:59 [ERYTHROMYCIN BASE] Penicillins [PENICILLINS] Allergy Intermediate Verified 01/05/18 15:59 Home Medications:: Home Medications Medication Instructions Recorded Confirmed Type carvedilol 6.25 mg tablet 6.25 mg PO BID 90 Days #180 11/25/17 01/13/18 History clopidogrel 75 mg tablet 75 mg PO DAILY 90 Days #90 11/25/17 01/13/18 History fenofibrate nanocrystallized 145 145 mg PO DAILY 90 Days #90 11/25/17 01/13/18 History mg tablet furosemide 80 mg tablet 80 mg PO DAILY 90 Days #90 11/25/17 01/13/18 History glimepiride 4 mg tablet 4 mg PO DAILY 90 Days #90 11/25/17 01/13/18 History hydralazine 10 mg tablet 20 mg PO BID 90 Days #360 11/25/17 01/13/18 History isosorbide mononitrate ER 30 mg 30 mg PO DAILY 90 Days #90 11/25/17 01/13/18 History tablet,extended release 24 hr linagliptin 5 mg tablet 5 mg PO DAILY 90 Days #90 11/25/17 01/13/18 History lisinopril 10 mg tablet 20 mg PO DAILY 90 Days #180 11/25/17 01/13/18 History metformin 1,000 mg tablet 1,000 mg PO DAILY 90 Days #90 11/25/17 01/13/18 History mupirocin 2 % topical ointment 1 applicatio TOPICAL DAILY 15 Days 11/25/17 01/13/18 History #66 omeprazole 20 mg capsule,delayed 20 mg PO DAILY 30 Days #60 11/25/17 01/13/18 History release rosuvastatin 5 mg tablet 5 mg PO DAILY 90 Days #90 11/25/17 01/13/18 History spironolactone 25 mg tablet 25 mg PO DAILY 87 Days #174 11/25/17 01/13/18 History tramadol 50 mg tablet 1 tab PO DAILY 30 Days #30 11/25/17 01/13/18 History Ferrous Sulfate 325 mg PO DAILY 01/06/18 01/13/18 History Levocetirizine Dihydrochloride 5 mg PO HS 01/06/18 01/13/18 History [Xyzal] [place]-3 Acid Ethyl Esters [Lovaza] 1 gm PO QID 01/06/18 01/13/18 History Sucralfate [Carafate 1gm Tab] 1 gm PO ACHS 01/06/18 01/13/18 History Tobramycin [Bethkis] 300 mg IH DIRECTED 01/13/18 01/13/18 History Vancomycin HCl [Vancomycin 1000mg 2,000 mg IV Q48H 01/13/18 01/13/18 History Vial] Height: 1.83 m Weight: 140.614 kg Laboratory Results:: Laboratory Results - last 24 hr 01/15/18 09:35: Sodium 143, Potassium 5.4 H, Chloride 109 H, Carbon Dioxide 28, Anion Gap 11.4, BUN 49 H, Creatinine 2.87 H, Estimated Creat Clear 27, Estimated GFR 22 L, Est GFR ( Amer) 27 L, Glucose 82, Calcium 8.3 L 01/15/18 09:35: Vancomycin Trough 18.8 01/15/18 09:35: Tobramycin Trough 1.3 Medical History: Reports:: Diabetes Mellitus Type 1, Diabetes Mellitus Type 2, Hyperlipidemia, Hypertension Denies:: Atherosclerotic Heart Disease Assessment and Plan - Assessment and plan all Dx Assessment and Plan for all problems:: BASED ON LEVELS AND PATIENT FACTORS, RECOMMEND CONTINUING VANCOMYCIN 2500 MG IV Q48H AND LOWERING TOBRAMYCIN TO 280 MG IV Q48H. PATIENT'S LAST DOSE FOR BOTH ANTIBIOTICS IS 01/17/18.
[2018-01-15 11:30] VITALS: BP 142/56; PULSE 88; RESP 18
[2018-01-15 12:00] VITALS: BP 149/53; PULSE 83; RESP 18
[2018-01-15 12:30] VITALS: BP 144/57; PULSE 79; RESP 16
[2018-01-15 13:00] VITALS: BP 155/56; PULSE 86; RESP 18
== END 2018-01-15 13:10 | disposition home or self-care (01) ==
LOC: INF 09:31
PROVIDERS: Family Provider Family Medicine; PCP Family Medicine; Visit Provider Family Medicine
DX: L03.116 Cellulitis of left lower limb (principal); L03.115 Cellulitis of right lower limb; B95.2 Enterococcus as the cause of diseases classified elsewhere
CPT/HCPCS: 80048; 80200; 80202; 96365; 96366; 96367; J3370

== ENCOUNTER 2018-01-17 09:00 | Outpatient (CLI) | payer MEDICARE, MEDICAID, SELFPAY ==
[2018-01-17 09:30] VITALS: BP 130/78; PULSE 76; RESP 16; TEMP 36.5; O2SAT 98
== END 2018-01-17 13:00 | disposition home or self-care (01) ==
PROVIDERS: Family Provider Family Medicine; PCP Family Medicine; Visit Provider Family Medicine
DX: L03.116 Cellulitis of left lower limb (principal); L03.115 Cellulitis of right lower limb; B95.2 Enterococcus as the cause of diseases classified elsewhere
CPT/HCPCS: 96365; 96366; J3370

== ENCOUNTER 2018-01-21 12:24 | Outpatient (CLI) | payer MEDICARE, MEDICAID, SELFPAY | END 2018-01-21 12:45 | disposition home or self-care (01) | LOC: INF 12:24 | PROVIDERS: Family Provider Family Medicine; PCP Family Medicine; Visit Provider Family Medicine | DX: Z45.2 Encounter for adjustment and management of vascular access device (principal); L03.116 Cellulitis of left lower limb; L03.115 Cellulitis of right lower limb; B95.2 Enterococcus as the cause of diseases classified elsewhere | CPT/HCPCS: G0463 ==

== ENCOUNTER 2018-02-02 13:21 | Outpatient (RCR) | payer MEDICARE, MEDICAID, SELFPAY ==
--- NOTE | 2018-02-02 14:35 | [facility].PTOPWND ---
Rehab Outpt Wound Evaluation Rehab OP Wound Evaluation Start: 02/02/18 14:25 Freq: Status: Active Protocol: Document 02/02/18 14:25 LISA (Rec: 02/02/18 14:35 [email or web address] [id number]) Electronically Signed By Garth Gold, PT 02/02/18 14:25 Subjective/History History History Pt is 68 yowm who presents with severe CVI induced ulcers to joelle LE with this episode beginning ~ 1 mo ago. He is well known to this clinic with joelle LE ulcers that rarely, if ever, completely heal. He uses a motorized chair for all mobility, but can transfer short distances. He reports no pain currently, but siginficant serous drainage from joelle LE. He has multiple co-morbidities including uncontrolled DM-II and obesity . Subjective Subjective Joelle LE dressings saturated with copious amounts of serous drainage. He reports the dressings were put in place Friday or . (4-5 days ago) Wound Eval Wound Right Lower Leg Wound Type Stasis Ulcer Wound Margins Description Indistinct Surrounding Tissue Appearance [place] Dark Red Purple Edematous Macerated Weeping Edema Type Pitting Edema Degree 3+ Query Text:1+ Trace, Barely Detectable, Rebound 15-30 seconds 2+ Moderate, Slight Indentation, Rebound 10-20 seconds 3+ Deep, Deeper Indentation, Rebound > 30 seconds 4+ Very Deep, Rebound > 60 seconds Edema Appearance Weeping Tight Puffy Open Sores Red Purple Drainage Description Serous Drainage Amount Copious Drainage Odor Foul Odor Dressing Status Soiled Wound Topical Solution/Irrigant Saline Irrigant Antibiotic Irrigant Dakins Irrigant Primary Dressing Unna Boot Wound Secondar
== END 2018-02-02 13:22 | disposition home or self-care (01) ==
LOC: PT 13:21
PROVIDERS: Family Provider Family Medicine; PCP Family Medicine; Visit Provider Family Medicine
DX: I73.9 Peripheral vascular disease, unspecified (principal)
CPT/HCPCS: 97163